=== PATIENT | female | born 1930 | race Caucasian/White ===

== ENCOUNTER 2018-05-31 19:50 | Inpatient (IN) | payer OTHER ==
[~2018-05-31] VITALS: Ht 167.6 cm; Wt 60.8 kg
[~2018-05-31 19:50] MED LIST: AMIODARONE HCL200 M1 PO; AMOXICILLIN500 M2 PO; ASPIRIN EC81 M1 PO; CORDARONE 200M200 MG PO; ELIQUIS2.5 M1 PO; FERROUS GLUCON300 MG PO; HYDRODIURIL 112.5 MG PO; LISINOPRIL20 M1 PO; MORPHINE10 MG/ML IV; MULTAQ 400MG400 MG PO; NORVASC5 M1 PO; PERCOCET MONOGRA5 MG PO; PRESERVISION A1 EACH PO; PRINIVIL 5MG5 MG PO; PRINIVIL10 MG PO; PRINIVIL20 M1 PO; SENNA S TABLET1 EACH PO; SIMVASTATIN5 M2 PO; TRAMADOL HCL50 M1 PO; TYLENOL325 M1 PO
--- NOTE | 2018-05-31 19:55 | ED MVC/FALL/TRAUMA COMPLAINT ---
History of Present Illness General Chief Complaint: Hip Injury Stated Complaint: BIBA MECHANICAL FALL, R HIP PAIN Source: patient Exam Limitations: no limitations Vital Signs & Intake/Output Vital Signs & Intake/Output Vital Signs Date Time Temp Pulse Resp B/P B/P Pulse O2 O2 Flow FiO2 Mean Ox Delivery Rate 06/01 0048 97.8 56 20 118/58 96 Room Air 05/310 97.6 55 18 127/55 99 Room Air 05/316 Room Air 05/31 1952 98.4 59 18 226/104 97 Room Air ED Intake and Output 06/01 0000 05/31 1200 Intake Total Output Total 200 Balance -200 Output, Urine 200 Patient 120 lb Weight Allergies Coded Allergies: NO KNOWN ALLERGIES (01/31/14) Reconcile Medications Amiodarone (Cordarone) 200 MG TABLET 1 TAB PO DAILY HEART (Reported) Amlodipine Besylate (Norvasc) 5 MG TABLET 1 TAB PO DAILY BP (Reported) Aspirin (Ecotrin*) 81 MG TABLET.DR 1 TAB PO DAILY HEART/BLOOD (Reported) Lisinopril 20 MG TABLET 1 TAB PO DAILY blood pressure (Reported) Sennosides/Docusate Sodium (Senna S Tablet) 8.6 MG-50 MG TABLET 2 TAB PO QHS GI (Reported) Simvastatin (Simvastatin*) 5 MG TABLET 1 TAB PO DAILY CHOLESTEROL (Reported) Vit A/Vit C/Vit E/Zinc/Copper (Preservision Areds Tablet) 7,160-113 TABLET 1 TAB PO BID EYE PROBLEMS (Reported) Triage Nurses Notes Reviewed? yes Onset: Gradual Duration: hour(s): Timing: recent history Severity: moderate Injuries/Fall Location: lower extremity Method of Injury: fall Loss of Consciousness: no loss of consciousness Modifying Factors: Worsens With: palpation. Associated Symptoms: right hip pain HPI: 88yo woman, h/o prior hip fracture, presents after a mechanical fall. She notes that she was cooking in the kitchen, pivoted, and then fell, landing on her right hip. She noted pain and difficulty moving. She notes no head injury, no syncopal prodrome or chest pain. She is otherwise well. Past History Travel History Traveled to [place] past 21 day No Medical History Any Pertinent Medical History? see below for history Neurological: CVA EENT: NONE Cardiovascular: hypertension, hyperlipidemia Respiratory: NONE Gastrointestinal: constipation Hepatic: NONE Renal: NONE Musculoskeletal: NONE Psychiatric: NONE Endocrine: NONE Blood Disorders: NONE Cancer(s): NONE History of MRSA: No History of VRE: No History of CDIFF: No Surgical History Surgical History: none Psychosocial History Who do you live with Son Services at Home Nursing What is your primary language Nepali Family History Family History, If Any: MOTHER Myocardial infarction Hx Contributory? No Review of Systems Review of Systems Constitutional: Reports: no symptoms. Eyes: Reports: no symptoms. Ears, Nose, Throat, Mouth: Reports: no symptoms. Respiratory: Reports: no symptoms. Cardiovascular: Reports: no symptoms. Gastrointestinal/Abdominal: Reports: no symptoms. Genitourinary: Reports: no symptoms. Musculoskeletal: Reports: no symptoms. Skin: Reports: no symptoms. Neurological/Psychological: Reports: no symptoms. All Other Systems: Reviewed and Negative Physical Exam Physical Exam General Appearance: well developed/nourished, mild distress, moderate distress Head: atraumatic, normal appearance Eyes: Bilateral: normal appearance. Ears, Nose, Throat, Mouth: hearing grossly normal, moist mucous membrane Neck: normal inspection, supple, full range of motion, no midline tenderness Respiratory: normal breath sounds, chest non-tender, no respiratory distress, quiet respiration, lungs clear Cardiovascular: regular rate/rhythm Gastrointestinal: normal bowel sounds, soft, non-tender, no organomegaly Back: normal inspection, normal range of motion Extremities: right leg internally rotated, tender to palpation around right hip girdle. 2+ distal pulse, light touch intact. Neurologic/Psych: no motor/sensory deficits, awake, alert, oriented x 3 Skin: intact, normal color, warm/dry Core Measures ACS in differential dx? No CVA/TIA Diagnosis No Sepsis Present: No Sepsis Focused Exam Completed? No Progress Differential Diagnosis: C/T/L spine injury, ext injury, ICH Plan of Care: Orders Procedure Date/time Status Nothing by Mouth 06/01 B Active CBC WITHOUT DIFFERENTIAL 06/01 06 Active BASIC ELECTROLYTES PLUS BUN&CR 06/01 0600 Active Weight 06/01 138 Active Vital Signs 06/01 138 Active Teach/Educate 06/01 138 Active Pain Treatment and Response 06/01 138 Active Nutritional Intake, Monitor 06/01 138 Active Isolation 06/01 138 Active Intake & Output 06/01 138 Active Patient Care Conference 06/01 138 Active Activity/Ambulation 06/01 138 Active EKG 06/01 0126 Active Pathway - chart 06/01 0023 Active House Staff 06/01 0023 Active Code Status 06/01 0023 Active VTE Mechanical Prophylaxis 06/01 UNK Active Patient Data 05/31 234 Active Saline Lock 05/31 2322 Active Misc Message 05/31 2322 Active ED Holding Orders 05/31 2322 Active Admit to inpatient 05/31 2322 Active Vital Signs 05/31 2322 Active Code Status 05/31 2322 Complete Intake & Output 05/31 2046 Active Lilly, Insertion/Removal/Asses 05/31 1958 Active CULTURE,URINE 05/31 1958 Active URINALYSIS 05/31 1958 Complete TROPONIN LEVEL 05/31 1958 Complete PARTIAL THROMBOPLASTIN TIME 05/31 1958 Complete PROTHROMBIN TIME 05/31 1958 Complete LIPASE 05/31 1958 Complete HEPATIC FUNCTION PANEL 05/31 1958 Complete CBC WITHOUT DIFFERENTIAL 05/31 1958 Complete BASIC METABOLIC PANEL 05/31 1958 Complete AMYLASE 05/31 1958 Complete EKG 05/31 1958 Active TYPE & SCREEN (NOT X-MATCH) 05/31 1958 Complete Current Medications Sig/Tiffanie Start time Last Medication Dose Stop Time Status Admin Senna/Docusate Sodium 2 TAB QPM 06/01 2100 AC (Senokot S) Atorvastatin Calcium 5 MG 1700 06/01 1700 AC (Lipitor) Amiodarone HCl 200 MG DAILY 06/01 09 AC (Cordarone) Amlodipine Besylate 5 MG DAILY 06/01 09 AC (Norvasc) Lisinopril 20 MG DAILY 06/01 09 AC (Prinivil) Heparin Sodium 5,000 UNIT Q8 06/01 0100 AC 06/01 (Porcine) 06/01 0601 0206 Acetaminophen 650 MG Q6P PRN 06/01 0030 AC 06/01 (Tylenol) 0157 Dextrose/Sodium 1,000 ML Q13H 06/01 0030 AC 06/01 Chloride 0152 (D5W-1/2 Normal Saline 1000ML) Morphine Sulfate 2 MG Q4P PRN 06/01 0030 AC (MORPHINE SULFATE) Oxycodone/ 1 TAB Q4P PRN 06/01 0030 AC Acetaminophen (Percocet) Laboratory Tests 05/31/182037: Urine Color YEL, Urine Clarity HAZY H, Urine pH 7.0, Ur Specific [place] 1.020, Urine Protein TRACE H, Urine Ketones NEG, Urine Nitrite POS H, Urine Bilirubin NEG, Urine Urobilinogen 0.2, Ur Leukocyte Esterase MOD H, Ur Microscopic SEDIMENT EXAMINED, Urine RBC RARE, Urine WBC 15-25 H, Ur Epithelial Cells RARE, Urine Bacteria MANY H, Urine Hemoglobin TRACE-INTACT, Urine Glucose NEG 05/31/182014: Anion Gap 7, Estimated GFR 39 L, BUN/Creatinine Ratio 20.8, Glucose 125 H, Calcium 8.7, Total Bilirubin 0.3, Direct Bilirubin 0.2, AST 23, ALT 24, Alkaline Phosphatase 74, Troponin I < 0.01, Total Protein 6.7, Albumin 4.0, Amylase 50, Lipase 103, PT 11.9, INR 1.09, APTT 28, CBC w Diff NO MAN DIFF REQ, RBC 4.05 L, MCV 92.8, MCH 30.7, MCHC 33.1, RDW 15.3 H, MPV 8.6, Gran % 73.2, Lymphocytes % 19.5 L, Monocytes % 5.8, Eosinophils % 1.3, Basophils % 0.2, Absolute Granulocytes 7.2 H, Absolute Lymphocytes 1.9, Absolute Monocytes 0.6, Absolute Eosinophils 0.1, Absolute Basophils 0 Microbiology 05/31 2038 URINE ROUT: Urine Culture - RECD Diagnostic Imaging: Viewed by Me: Radiology Read, CT Scan. Discussed w/RAD: Radiology Read, CT Scan. Radiology Impression: PATIENT: JUAN ACOSTA PRESENT AGE: 88 PATIENT ACCOUNT NO: [id number] : 32 LOCATION: [facility] ORDERING PHYSICIAN: Amando Howard MD SERVICE DATE: 05/31/18 EXAM TYPE: RAD - XRY-AP PELVIS; XRY-FEMUR, 2 VIEWS RIGHT; XRY-HIP 2-3 VIEWS, RIGHT; XRY-PORTABLE CHEST XRAY EXAMINATION: Right hip, right femur, AP pelvis and chest x-ray CLINICAL INFORMATION: Right hip pain. COMPARISON: None TECHNIQUE : AP pelvis one view. Right hip 2 views, right femur 2 views and chest one view. . FINDINGS: AP PELVIS: There is right hip femoral prosthesis in alignment with the acetabulum. The left hip joint appears unremarkable. There is no bony abnormality. The soft tissues are normal. RIGHT HIP: AP and frog-leg views right hip reveal right femoral prosthesis to be in good alignment. No dislocation. There is no loosening of the prosthesis. The soft tissues are normal. Right femur: There is distal right femoral oblique fracture with displacement. CHEST: The lungs are expanded and clear of acute process. The heart size and pulmonary vascularity is normal. No gross bony abnormality seen. IMPRESSION: Oblique fracture distal femur with mild displacement. Right hip prosthesis is in alignment without any loosening. There is no fracture involving the left hip or pelvic bones. Unremarkable chest exam. DICTATED BY: Placido Pena MD DATE/TIME DICTATED:05/31/182307 TELETYPESETTER OPERATOR:SENTHIL DATE/TIME TRANSCRIBED:2307 CONFIDENTIAL, DO NOT COPY WITHOUT APPROPRIATE AUTHORIZATION. < Electronically signed in Other Vendor System> SIGNED BY: Placido Pena MD [id number], PATIENT: JUAN ACOSTA PRESENT AGE : 88 PATIENT ACCOUNT NO: [id number] : 32 LOCATION: [facility] ORDERING PHYSICIAN: Amando Howard MD SERVICE DATE: 05/31/18 EXAM TYPE: CAT - CT CERV SPINE WO IV CONTRAST; CT HEAD WO IV CONTRAST EXAMINATION: CT HEAD WITHOUT CONTRAST CT CERVICAL SPINE WITHOUT CONTRAST CLINICAL INFORMATION: Fall, trauma. COMPARISON: CT head 08/20/2017 TECHNIQUE: Multidetector CT imaging of the head and cervical spine was performed without the use of intravenous contrast. FINDINGS: CT Brain: There is no evidence of acute intracranial hemorrhage, midline shift, mass effect, or extra-axial fluid collection. There is generalized cerebral volume loss with central predominance, as before. There is a focal area of encephalomalacia involving the left basal ganglia, likely reflecting sequela of prior hemorrhage. Stable background of chronic microvascular ischemic change. The calvarium is intact. Visualized paranasal sinuses and mastoid air cells are clear. CT Cervical spine: There is reversal of the normal cervical lordosis. Cervical vertebral bodies are unchanged in height and alignment. There is unchanged grade 1 anterolisthesis of C3 on C4 as well as C7 on T1. No evidence of acute fracture or traumatic subluxation. Advanced multilevel degenerative changes of the cervical spine are again seen, with severe loss of intervertebral disc height and disc osteophyte formation at C4-C5 , C5-C6, and C6-C7. There is fusion of the left C2-C3 facets. Findings are overall not significantly changed from prior exam. Regional soft tissues are within normal limits. No focal lung consolidation in the lung apices. At this chronic calcifications are seen along the carotid bifurcations and proximal major cervical arterial vasculature. IMPRESSION: CT Brain: Stable exam. No acute intracranial hemorrhage or mass effect. CT Cervical spine: No evidence of cervical spine fracture. Advanced degenerative changes of the cervical spine, as before. DICTATED BY: Kush Campbell MD DATE/TIME DICTATED:05/31/182300 TELETYPESETTER OPERATOR:SENTHIL DATE/TIME TRANSCRIBED:05/31/182300 CONFIDENTIAL, DO NOT COPY WITHOUT APPROPRIATE AUTHORIZATION. <Electronically signed in Other Vendor System> SIGNED BY: Kush Campbell MD 05/31/182313, PATIENT: JUAN ACOSTA PRESENT AGE: 88 PATIENT ACCOUNT NO: [id number] : 32 LOCATION: [facility] ORDERING PHYSICIAN: Bakari Grady MD SERVICE DATE: 05/31/18 EXAM TYPE: RAD - XRY-FEMUR, 2 VIEWS RIGHT EXAMINATION: XR FEMUR, RIGHT CLINICAL INFORMATION: Femur fracture. COMPARISON: 05/31/2018 TECHNIQUE: AP and lateral views of the right femur were obtained. FINDINGS/IMPRESSION: Again seen is the oblique oriented fracture across the mid right femoral shaft. When compared to the prior exam, there has been improvement in overall osseous alignment, though with residual, approximately half shaft medial displacement of the distal fracture fragment. No new acute osseous abnormalities identified. Right hip prosthesis again noted with adjacent heterotopic calcification. DICTATED BY: Kush Campbell MD DATE/TIME DICTATED:37 TELETYPESETTER OPERATOR:SENTHIL DATE/TIME TRANSCRIBED:06/01/1837 CONFIDENTIAL, DO NOT COPY WITHOUT APPROPRIATE AUTHORIZATION. <Electronically signed in Other Vendor System> SIGNED BY: Kush Campbell MD 06/01/18 0044 Initial ED EKG: sinus, no acute changes Departure Departure Disposition: STILL A PATIENT Condition: Stable Clinical Impression Primary Impression: Right femoral fracture Referrals: Mounika Foster MD (PCP/Family) Departure Forms: Customer Survey General Discharge Information Comments 05/31/18, 23:21... discussed with dr. shay... pt to be admitted to medicine for pre-op clearance. Admission Note Spoke With: Chelsea TANNER,Avinash Documentation of Exam: Documentation of any treatments & extenuating circumstances including Concerns Regarding Discharge (functional status, medication knowledge or non-compliance, living conditions, etc.) that warrant an admission rather than observation: pt with sprial type right femur fracture... pt merits surgical clearance on medicine service prior to surgical repair. Procedures Joint Reduction Joint Reduction Site: right femur Reduction Attempts: 1 Pre-Procedure NV Exam: Yes Post-Procedure NV Exam: Yes Post Joint Reduction Film: femur alignment improved. pt placed in posterior and sugar tong splint.
[2018-05-31 20:41] LABS: ABSOLUTE BASOPHIL COUNT 0 /CUMM (0.0-0.2); ABSOLUTE EOSINOPHIL COUNT 0.1 /CUMM (0.0-0.7); ABSOLUTE LYMPH COUNT 1.9 /CUMM (1.2-3.4); ABSOLUTE MONOCYTE COUNT 0.6 /CUMM (0.10-0.60); BASOPHIL % 0.2 % (0.0-2.0); EOSINOPHIL % 1.3 % (0-5); GRANULOCYTE % 73.2 % (42.2-75.2); HEMATOCRIT 37.5 % (37-47); MEAN CORPUSCULAR HGB 30.7 PG (27.0-31.0); MEAN CORPUSCULAR VOLUME 92.8 FL (81.0-99.0); MEAN PLATELET VOLUME 8.6 FL (7.4-10.4); PLATELET COUNT 269 /CUMM (130-400); RBC DISTRIBUTION WIDTH 15.3 % (11.5-14.5); RED BLOOD CELL CT 4.05 /CUMM (4.20-5.40)
[2018-05-31 20:48] LABS: ABSOLUTE GRANULOCYTE CT 7.2 /CUMM (1.4-6.5); MEAN CORPUSCULAR HGB CONC 33.1 G/DL (33.0-37.0); WHITE BLOOD CELL COUNT 9.8 /CUMM (4.8-10.8)
[2018-05-31 20:53] LABS: PT 11.9 SEC (9.4-12.5); PTT 28 SEC (25-37)
--- NOTE | 2018-05-31 23:14 | CT SCAN REPORT ---
EXAMINATION: CT HEAD WITHOUT CONTRAST CT CERVICAL SPINE WITHOUT CONTRAST CLINICAL INFORMATION: Fall, trauma. COMPARISON: CT head 08/20/2017 TECHNIQUE: Multidetector CT imaging of the head and cervical spine was performed without the use of intravenous contrast. FINDINGS: CT Brain: There is no evidence of acute intracranial hemorrhage, midline shift, mass effect, or extra-axial fluid collection. There is generalized cerebral volume loss with central predominance, as before. There is a focal area of encephalomalacia involving the left basal ganglia, likely reflecting sequela of prior hemorrhage. Stable background of chronic microvascular ischemic change. The calvarium is intact. Visualized paranasal sinuses and mastoid air cells are clear. CT Cervical spine: There is reversal of the normal cervical lordosis. Cervical vertebral bodies are unchanged in height and alignment. There is unchanged grade 1 anterolisthesis of C3 on C4 as well as C7 on T1. No evidence of acute fracture or traumatic subluxation. Advanced multilevel degenerative changes of the cervical spine are again seen, with severe loss of intervertebral disc height and disc osteophyte formation at C4-C5, C5-C6, and C6-C7. There is fusion of the left C2-C3 facets. Findings are overall not significantly changed from prior exam. Regional soft tissues are within normal limits. No focal lung consolidation in the lung apices. At this chronic calcifications are seen along the carotid bifurcations and proximal major cervical arterial vasculature. IMPRESSION: CT Brain: Stable exam. No acute intracranial hemorrhage or mass effect. CT Cervical spine: No evidence of cervical spine fracture. Advanced degenerative changes of the cervical spine, as before.
--- NOTE | 2018-05-31 23:16 | RADIOLOGY REPORT ---
EXAMINATION: Right hip, right femur, AP pelvis and chest x-ray CLINICAL INFORMATION: Right hip pain. COMPARISON: None TECHNIQUE: AP pelvis one view. Right hip 2 views, right femur 2 views and chest one view. . FINDINGS: AP PELVIS: There is right hip femoral prosthesis in alignment with the acetabulum. The left hip joint appears unremarkable. There is no bony abnormality. The soft tissues are normal. RIGHT HIP: AP and frog-leg views right hip reveal right femoral prosthesis to be in good alignment. No dislocation. There is no loosening of the prosthesis. The soft tissues are normal. Right femur: There is distal right femoral oblique fracture with displacement. CHEST: The lungs are expanded and clear of acute process. The heart size and pulmonary vascularity is normal. No gross bony abnormality seen. IMPRESSION: Oblique fracture distal femur with mild displacement. Right hip prosthesis is in alignment without any loosening. There is no fracture involving the left hip or pelvic bones. Unremarkable chest exam.
--- NOTE | 2018-06-01 00:19 | History & Physical ---
Ysabel TANNER,[facility] 06/01/18 0018: General Information and HPI MD Statement: I have seen and personally examined JUAN ACOSTA and documented this H&P. The patient is a 88 year old F who presented with a patient stated chief complaint of [right leg pain and fall]. Source of Information: patient Exam Limitations: no limitations History of Present Illness: 88 yo F with PMH of CVA (with no residual deficits), hypertension, hyperlipidemia, paroxysmal atrial fibrillation (on amiodarone and not on anticoagulation) was brought to the ED after sustaining a fall. The patient states that earlier today she was in her kitchen and while ambulating, slipped on her walker and fell down. She did hit her head but denies LOC. She denies any lightheadedness/dizziness, chest pain or palpitations prior the fall and that she just simply lost her balance. After falling down, she pressed on her life vest and soon the EMS arrived and brought her to the hospital. She currently describes her pain as 5/10 and denies any numbness or tingling sensation in her right leg. The patient normally lives by herself but does have an VNA though the aid was not present at the time of the incident. She denies any fevers, chills, headaches, exertional SOB, chest pain, abdominal pain, dysuria or any other associated symptoms. Of note, the patient was admitted round about the same time last year for a right hip hemiarthroplasty. Imaging in the ED showed oblique fracture of right femur with mild displacement. Allergies/Medications Allergies: Coded Allergies: NO KNOWN ALLERGIES (01/31/14) Home Med list Acetaminophen (Tylenol) 325 MG TABLET 2 TAB PO Q6P PRN PAIN Amiodarone (Cordarone) 200 MG TABLET 1 TAB PO DAILY HEART (Reported) Amlodipine Besylate (Norvasc) 5 MG TABLET 1 TAB PO DAILY BP (Reported) Aspirin (Ecotrin*) 81 MG TABLET.DR 1 TAB PO DAILY HEART/BLOOD (Reported) Enoxaparin Sodium (Lovenox) 40 MG/0.4 ML SYRINGE 40 MG SC DAILY DVT prophylaxsis Lidocaine 5 % ADH..PATCH 1 PAT TOP DAILY FRACTURE SITE Lisinopril 20 MG TABLET 1 TAB PO DAILY blood pressure (Reported) Sennosides/Docusate Sodium (Senna S Tablet) 8.6 MG-50 MG TABLET 2 TAB PO QHS GI (Reported) Simvastatin (Simvastatin*) 5 MG TABLET 1 TAB PO DAILY CHOLESTEROL (Reported) Vit A/Vit C/Vit E/Zinc/Copper (Preservision Areds Tablet) 7,160-113 TABLET 1 TAB PO BID EYE PROBLEMS (Reported) Past History Travel History Traveled to [place] past 21 day No Medical History Neurological: CVA EENT: NONE Cardiovascular: hypertension, hyperlipidemia Respiratory: NONE Gastrointestinal: constipation Hepatic: NONE Renal: NONE Musculoskeletal: NONE Psychiatric: NONE Endocrine: NONE Blood Disorders: NONE Cancer(s): NONE History of MRSA: No History of VRE: No History of CDIFF: No Surgical History Surgical History: none Past Family/Social History Family History Relations & Conditions if any MOTHER Myocardial infarction Psychosocial History Who Do You Live With? self Services at Home: Nursing Functional Ability ADLs Independent: dressing, eating, toileting, bathing. Ambulation: cane IADLs Independent: shopping, housework, finances, food prep, telephone, transportation , medication admin. Review of Systems Review of Systems Constitutional: Reports: see HPI. Exam & Diagnostic Data Last 24 Hrs of Vital Signs/I&O Vital Signs Date Time Temp Pulse Resp B/P B/P Pulse O2 O2 Flow FiO2 Mean Ox Delivery Rate 06/01 0048 97.8 56 20 118/58 96 Room Air 05/31 2150 97.6 55 18 127/55 99 Room Air 05/31 2046 Room Air 05/31 1952 98.4 59 18 226/104 97 Room Air Intake & Output 06/01 0800 06/01 0000 05/31 1600 Intake Total Output Total 200 Balance -200 Output, Urine 200 Patient 134 lb 120 lb Weight Weight Bed scale Measurement Method Physical Exam General Appearance Alert, Oriented X3, Cooperative, Mild Distress Skin No Rashes, No Breakdown Skin Temp/Moisture Exam: Warm/Dry Sepsis Skin Exam (color): Normal for Ethnicity HEENT Atraumatic Cardiovascular Normal S1, Normal S2, No Murmurs Lungs Normal Air Movement, anterior chest CTA Abdomen Soft, No Tenderness Neurological Normal Speech Extremities No Edema, RLE in splint. Assessment/Plan Assessment: 88 yo F with PMH of CVA (with no residual deficits), hypertension, hyperlipidemia, paroxysmal atrial fibrillation (on amiodarone and not on anticoagulation) was brought to the ED after sustaining a fall. Assessment: 1. Right Femoral Fracture 2. History of hypertension and hyperlipidemia 3. History of paroxysmal atrial fibrillation Plan: * Admit patient to general medicine floor. * Continue conservative management with a splint for now. * Pain control with tylenol and IV morphine as needed. * Ortho consult. Patient is scheduled for the OR tomorrow. * Cardiology clearance has been requested by ortho. The patient was found to have a modest troponin elevation on her labs last year. An echo performed at the time showed no WMA. * Hydrate with D5-1/2 NS @ 75ml/hr * Please confirm home medication list in am. The patient states she uses [facility] in [place]. Also her aid can provide a list. * Diet: NPO * DVT Prophylaxis: SC Heparin * Code: Full Code As Ranked By This Provider Problem List: 1. Right femoral fracture Core Measures/Misc (05/25) Acute Coronary Syndrome ACS Diagnosis: No Congestive Heart Failure Congestive Heart Failure Diagnosis No Cerebrovascular Accident CVA/TIA Diagnosis: No VTE (View Protocol) VTE Risk Factors Age>40 No Mechanical VTE Prophylaxis d/t N/A MechProphylax Ordered No VTE Pharm Prophylaxis d/t NA PharmProphylax ordered Sepsis (View protocol) Sepsis Present: No If YES complete Sepsis Event Note If YES complete Sepsis Event Note Avinash Tran 06/01/18 0131: Core Measures/Misc (05/25) Sepsis (View protocol) If YES complete Sepsis Event Note If YES complete Sepsis Event Note Attending MD Review Statement Attending Statement Attending MD Statement: examined this patient, discuss w/resident/PA/GOVERNMENT CLERK, agreed w/resident/PA/GOVERNMENT CLERK, reviewed images, amended to note Attending Assessment/Plan: Addendum by . Patient was seen and examined at bedside today (06/01/18) at 1;10Am. Reviewed the history physical done by the resident. Reviewed the past medical family, family, social history. ROS: 10 point system reviewed and negative except as described above. Additional details: Patient is 88 years old female with history of previous CVA without any residual weakness, paroxysmal atrial fibrillation on amiodarone, history of hypertension, hyperlipidemia who is here for evaluation of right femur fracture. Patient was in the kitchen and she slipped and fell and sustained a fracture in the right femur. Except pain no other complaints. Patient had a history of right femoral fracture and surgical fixation in the past. Exam: Alert, awake, oriented 3, has poor dentition he has dentures. Cardiac examination-regular sounds no murmurs. Lungs-clear Abdomen soft Right lower extremity status post splinting. Trace edema of the leg noted. Right femoral x-ray, chest x-ray, labs reviewed. Assessment and plan: #Right femur shaft fracture which is the periprosthetic area, due to fall- status post splinting in the ER. Seen by orthopedic, double take her to or tomorrow. We will give her subcu heparin for now until surgery is done to prevent DVT. As needed morphine for pain control. #history of CVA without residual weakness-continue with aspirin, statin. #Hypertension-controlled on medication #Permanent atrial fibrillation-on amiodarone, currently sinus rhythm. Not on any blood thinner at home. Preop evaluation-currently patient does not have any active cardiopulmonary disease or any neuro, renal or liver conditions that will hinder from the procedure. Currently regular rhythm, getting an EKG. Old records reviewed. Patient does not need any further workup. She is at acceptable risk to undergo proposed surgery for femoral fracture. Reviewed with the resident. Agree with the rest of the plan as per resident's note. Dr.Ravinder Lucille MD. Hospitalist. Pager: [phone], cell: [phone]. Pager: [phone], cell: [phone].
--- NOTE | 2018-06-01 00:25 | Cons- Orthopedic ---
Opal Sam 06/01/18 0018: General Information and HPI Consulting Request Date of Consult: 06/01/18 Requested By: ER Dr. Nunez Reason for Consult: fall with right hip injury Source of Information: patient Exam Limitations: no limitations History of Present Illness: This is an 88-year-old female with a past medical history significant for hypertension, hyperlipidemia, prior CVA , paroxysmal atrial fib presented to the emergency room after a traumatic fall in her kitchen. Patient states she was cooking when she twisted, pivoting on her right leg. She felt pain in her leg, then it gave out on her and she fell to the ground. Patient states she did not hit her head or lose consciousness there was no dizziness chest pain prior to the fall. She is in good health without any recent fevers flus or infections or acute changes in her health. Allergies/Medications Allergies: Coded Allergies: NO KNOWN ALLERGIES (01/31/14) Home Med List: Acetaminophen (Tylenol) 325 MG TABLET 2 TAB PO Q6P PRN PAIN Amiodarone (Cordarone) 200 MG TABLET 1 TAB PO DAILY HEART (Reported) Amlodipine Besylate (Norvasc) 5 MG TABLET 1 TAB PO DAILY BP (Reported) Aspirin (Ecotrin*) 81 MG TABLET.DR 1 TAB PO DAILY HEART/BLOOD (Reported) Calcium Carbonate/Vitamin D3 (Calcium 500 + D Tablet) 500 MG-400 TABLET 1 TAB PO BID osteoporosis Cephalexin 250 MG CAPSULE 1 MG PO Q6 uti Cholecalciferol (Vitamin D3) 1,000 UNIT TABLET 1 TAB PO DAILY osteoporosis Enoxaparin Sodium (Lovenox) 40 MG/0.4 ML SYRINGE 40 MG SC DAILY DVT prophylaxsis contiune till 07/14 (six wks after the surgey) Lidocaine 5 % ADH..PATCH 1 PAT TOP DAILY FRACTURE SITE Lisinopril 20 MG TABLET 1 TAB PO DAILY blood pressure (Reported) Sennosides/Docusate Sodium (Senna S Tablet) 8.6 MG-50 MG TABLET 2 TAB PO QHS GI (Reported) Simvastatin (Simvastatin*) 5 MG TABLET 1 TAB PO DAILY CHOLESTEROL (Reported) Vit A/Vit C/Vit E/Zinc/Copper (Preservision Areds Tablet) 7,160-113 TABLET 1 TAB PO BID EYE PROBLEMS (Reported) Past History Medical History Neurological: CVA EENT: NONE Cardiovascular: hypertension, hyperlipidemia Respiratory: NONE Gastrointestinal: constipation Hepatic: NONE Renal: NONE Musculoskeletal: NONE Psychiatric: NONE Endocrine: NONE Blood Disorders: NONE Cancer(s): NONE Surgical History Pertinent Surgical History: 1 Family History Relations & Conditions If Any: MOTHER Myocardial infarction Psychosocial History Who Do You Live With? self Services at Home: Nursing Functional Ability ADLs Independent: dressing, eating, toileting, bathing. Ambulation: cane IADLs Independent: shopping, housework, finances, food prep, telephone, transportation , medication admin. Review of Systems Review of Systems: Review of systems: See HPI, all other systems negative. Constitutional: No chills fever or weight loss HEENT: No visual changes no sore throat no congestion Cardiovascular: No chest pain ,palpitation , orthopnea or ankle swelling Skin: No jaundice no rashes Respiratory: No dyspnea cough sputum or hemoptysis GI: No nausea no vomiting : No dysuria no hematuria Musclulo skeletal: No back pain no neck pain, Neurologic: No numbness no confusion Psych: No stress anxiety or depression,. Heme/endocrine: No bruising no bleeding no polyuria or polydipsia Immunology: No splenectomy or history of AIDS Exam & Diagnostic Data Vital Signs and I&O Vital Signs Date Time Temp Pulse Resp B/P B/P Pulse O2 O2 Flow FiO2 Mean Ox Delivery Rate 05/31 2150 97.6 55 18 127/55 99 Room Air 05/31 2046 Room Air 05/31 1952 98.4 59 18 226/104 97 Room Air Intake & Output 06/01 0806/01 0000 05/31 1600 05/31 0805/31 0000 05/30 1600 Intake Total Output Total 200 Balance -200 Output, Urine 200 Patient 120 lb Weight Physical Exam: 88-year-old female alert and oriented 3 HEENT head is atraumatic normocephalic nontender no evidence of trauma, hematoma or abrasions Eyes are PERRLA extraocular muscles intact Nose is patent without drainage TMs are clear without hemotympanum Mouth positive gag no erythema Neck supple nontender with active range of motion Chest is clear to auscultation symmetric without rales rhonchi or wheeze there is no chest wall tenderness Heart regular rate and rhythm without murmurs rubs gallops Abdomen is soft without distention nontender to palpation Bilateral lower extremities are warm with good perfusion distal pulses are 1+ bilaterally sensorimotor is intact Right hip range of motion not tested there is deformity of the mid thigh with moderate edema. ER staff placed a posterior splint to control motion and rotation Last 24 Hours of Labs: Laboratory Tests 05/31 Chemistry Sodium (137 - 145 mmol/L) 138 Potassium (3.5 - 5.1 mmol/L) 4.1 Chloride (98 - 107 mmol/L) 100 Carbon Dioxide (22 - 30 mmol/L) 31 H Anion Gap (5 - 16) 7 BUN (7 - 17 mg/dL) 27 H Creatinine (0.5 - 1.0 mg/dL) 1.3 H Estimated GFR (>60 ml/min) 39 L BUN/Creatinine Ratio (7 - 25 %) 20.8 Glucose (65 - 99 mg/dL) 125 H Calcium (8.4 - 10.2 mg/dL) 8.7 Total Bilirubin (0.2 - 1.3 mg/dL) 0.3 Direct Bilirubin (< 0.4 mg/dL) 0.2 AST (14 - 36 U/L) 23 ALT (9 - 52 U/L) 24 Alkaline Phosphatase (<127 U/L) 74 Troponin I (< 0.11 ng/ml) < 0.01 Total Protein (6.3 - 8.2 g/dL) 6.7 Albumin (3.5 - 5.0 g/dL) 4.0 Amylase (30 - 110 U/L) 50 Lipase (23 - 300 U/L) 103 Coagulation PT (9.4 - 12.5 SEC) 11.9 INR (0.90 - 1.19) 1.09 APTT (25 - 37 SEC) 28 Hematology CBC w Diff NO MAN DIFF REQ WBC (4.8 - 10.8 /CUMM) 9.8 RBC (4.20 - 5.40 /CUMM) 4.05 L Hgb (12.0 - 16.0 G/DL) 12.4 Hct (37 - 47 %) 37.5 MCV (81.0 - 99.0 FL) 92.8 MCH (27.0 - 31.0 PG) 30.7 MCHC (33.0 - 37.0 G/DL) 33.1 RDW (11.5 - 14.5 %) 15.3 H Plt Count (130 - 400 /CUMM) 269 MPV (7.4 - 10.4 FL) 8.6 Gran % (42.2 - 75.2 %) 73.2 Lymphocytes % (20.5 - 51.1 %) 19.5 L Monocytes % (1.7 - 9.3 %) 5.8 Eosinophils % (0 - 5 %) 1.3 Basophils % (0.0 - 2.0 %) 0.2 Absolute Granulocytes (1.4 - 6.5 /CUMM) 7.2 H Absolute Lymphocytes (1.2 - 3.4 /CUMM) 1.9 Absolute Monocytes (0.10 - 0.60 /CUMM) 0.6 Absolute Eosinophils (0.0 - 0.7 /CUMM) 0.1 Absolute Basophils (0.0 - 0.2 /CUMM) 0 Urines Urine Color (YEL,AMB,STR) YEL Urine Clarity (CLEAR) HAZY H Urine pH (5.0 - 8.0) 7.0 Ur Specific [place] (1.001 - 1.035) 1.020 Urine Protein (NEG,<30 MG/DL) TRACE H Urine Ketones (NEG) NEG Urine Nitrite (NEG) POS H Urine Bilirubin (NEG) NEG Urine Urobilinogen (0.1 - 1.0 EU/dl) 0.2 Ur Leukocyte Esterase (NEG) MOD H Ur Microscopic SEDIMENT EXAMINED Urine RBC (0 - 5 /HPF) RARE Urine WBC (0 - 2 /HPF) 15-25 H Ur Epithelial Cells (NONE,FEW) RARE Urine Bacteria (NEG/NONE) MANY H Urine Hemoglobin (NEG) TRACE-INTACT Urine Glucose (N MG/DL) NEG Imaging Results: Chest x-ray normal chest Pelvic films/right hip x-ray reveals a displaced periprosthetic right hip fracture, spiral. There is a cemented bipolar hip Head CT normal Other Results: EKG normal sinus rhythm with ST-T wave abnormalities Assessment/Plan Assessment/Plan 88-year-old female with a past medical history significant for CVA without residual sequela I, paroxysmal atrial fib, hypertension, hyperlipidemia was brought to the ER via EMS after a traumatic fall in her kitchen. She sustained a right mayank-prosthetic femur fracture. Plan she will be admitted to the medical service. She will need cardiac clearance. Her labs are stable however she has an asymptomatic urinary tract infection. Lilly catheter has been placed for her comfort. She will need Alps for DVT prophylaxis and will need to be n.p.o. for surgery tomorrow evening. Consult Acknowledgment - Thank you for your consult request. Nahomy Soriano MD 06/01/18 0822: Assessment/Plan Consult Acknowledgment - Thank you for your consult request. Attending MD Review Statement Attending Statement Attending MD Statement: examined this patient, discuss w/resident/PA/PYROGLAZER, agreed w/resident/PA/PYROGLAZER, reviewed images Attending Assessment/Plan: Patient seen and examined. Resting in bed, splint to right lower extremity. Patient currently rates her pain at 5. No other complaints of pain or dysfunction. Says she tripped over the walker yesterday, resulting in a fall. She lives alone but has an aide during the day; ambulates at baseline with a walker following right cemented dago [place] [address] Pate. Exam: Patient alert, oriented, in no acute distress Splint to right lower extremity Intact right EHL/FHL SILT over SP/DP/T nerve distribution of right foot Foot warm and well-perfused. 88yo F with right [place] C periprosthetic femur fracture; spiral fracture below cemented hemiarthroplasty. Plan for OR today for ORIF right femur. 1. NWB RLE in splint 2. Pain control; please limit narcotics 3. NPO for OR today; continue IV fluids 4. Anticipate drop in H/H given fracture pattern; please monitor labs and vital signs. To OR today for stabilization of fracture.
--- NOTE | 2018-06-01 00:44 | RADIOLOGY REPORT ---
EXAMINATION: XR FEMUR, RIGHT CLINICAL INFORMATION: Femur fracture. COMPARISON: 05/31/2018 TECHNIQUE: AP and lateral views of the right femur were obtained. FINDINGS/IMPRESSION: Again seen is the oblique oriented fracture across the mid right femoral shaft. When compared to the prior exam, there has been improvement in overall osseous alignment, though with residual, approximately half shaft medial displacement of the distal fracture fragment. No new acute osseous abnormalities identified. Right hip prosthesis again noted with adjacent heterotopic calcification.
[2018-06-01 03:00] VITALS: BP 128/56
[2018-06-01 06:10] VITALS: BP 142/68
--- NOTE | 2018-06-01 07:20 | PN- Housestaff ---
See Addendum Subjective Follow-up For: Right hip femoral fracture Subjective: Pt seen and examined at bedside this morning. Dressing and splint applied to right lower extremity. Patient states her pain is 5/10 this morning. She is frustrated about having to do another surgery. Pending cardiology clearance for surgery scheduled at 4PM today. Lilly placed. Patient denies urianry symptoms although UA positive. Will be treated with 1X dose of ceftriaxone prior to surgery. Review of Systems Constitutional: Denies: see HPI. Objective Last 24 Hrs of Vital Signs/I&O Vital Signs Date Time Temp Pulse Resp B/P B/P Pulse O2 O2 Flow FiO2 Mean Ox Delivery Rate 06/01 09 52 110/70 06/01 0958 52 110/70 06/01 0958 52 110/70 06/01 0610 98.5 83 18 142/68 95 Room Air 06/01 0300 98.4 51 20 128/56 95 Room Air 06/01 0048 97.8 56 20 118/58 96 Room Air 05/31 2150 97.6 55 18 127/55 99 Room Air 05/31 2046 Room Air 05/31 1952 98.4 59 18 226/104 97 Room Air Intake & Output 06/01 1600 06/01 0800 06/01 0000 Intake Total 375 Output Total 425 200 Balance -50 -200 Intake, IV 375 Intake, Oral 0 Number 0 Bowel Movements Output, Urine 425 200 Patient 134 lb 120 lb Weight Weight Bed scale Measurement Method Physical Exam General Appearance: Alert, Oriented X3, Cooperative, Mild Distress Skin: right lower extremity dressing/splint applied Skin Temp/Moisture Exam: Warm/Dry HEENT: EOMI, Mucous Membr. moist/pink Neck: Supple Cardiovascular: Normal S1, Normal S2 Lungs: Clear to Auscultation, Normal Air Movement Abdomen: Normal Bowel Sounds, Soft, No Tenderness Neurological: Normal Speech, Normal Tone, sensation intact;decreased strength right lower ext Extremities: No Edema, Normal Pulses Vascular: Normal Pulses Current Medications: Current Medications Sig/Tiffanie Start time Last Medication Dose Route Stop Time Status Admin Acetaminophen 650 MG Q6P PRN 06/01 0030 AC 06/01 PO 0157 Amiodarone HCl 200 MG DAILY 06/01 09 AC 06/01 PO 957 Amlodipine Besylate 5 MG DAILY 06/01 900 AC 06/01 PO 957 Atorvastatin Calcium 5 MG 1700 06/01 1700 AC PO Ceftriaxone Sodium 1,000 MG ONCE ONE 06/01 0900 DC 06/01 IV 06/01 0901 0957 Dextrose/Sodium 1,000 ML Q13H 06/01 0030 AC 06/01 Chloride IV 0152 Heparin Sodium 5,000 UNIT Q8 06/01 0100 DC 06/01 (Porcine) SC 06/01 0601 0536 Influenza Virus 0 .STK-MED ONE 06/01 0955 DC Vaccine IM Influenza Virus 0.5 ML ONCE ONE 06/01 0200 DC 06/01 Vaccine IM 06/01 0201 0959 Lisinopril 20 MG DAILY 06/01 0900 AC 06/01 PO 0958 Morphine Sulfate 2 MG Q4P PRN 06/01 0030 AC 06/01 IV 0536 Morphine Sulfate 4 MG ONCE ONE 05/31 2315 DC 05/31 IV 05/31 2316 2323 Morphine Sulfate 0 .STK-MED ONE 05/31 2314 DC .ROUTE Morphine Sulfate 0 .STK-MED ONE 05/31 2017 DC .ROUTE Morphine Sulfate 2 MG ONCE ONE 05/31 2000 DC 05/31 IV 05/31 Oxycodone/ 1 TAB Q4P PRN 06/01 0030 AC 06/01 Acetaminophen PO 0959 Senna/Docusate Sodium 2 TAB QPM 06/01 2100 AC PO Last 24 Hrs of Lab/Jenaro Results Last 24 Hrs of Labs/Mics: Laboratory Tests 06/01/18 0702: Anion Gap 7, Estimated GFR 53 L, BUN/Creatinine Ratio 26.0 H, CBC w Diff NO MAN DIFF REQ, RBC 3.24 L, MCV 92.6, MCH 31.5 H, MCHC 34.0, RDW 15.0 H, MPV 8.9, Gran % 79.6 H, Lymphocytes % 13.0 L, Monocytes % 7.3, Eosinophils % 0, Basophils % 0.1, Absolute Granulocytes 8.3 H, Absolute Lymphocytes 1.3, Absolute Monocytes 0.8 H, Absolute Eosinophils 0, Absolute Basophils 0 05/31/182037: Urine Color YEL, Urine Clarity HAZY H, Urine pH 7.0, Ur Specific [place] 1.020, Urine Protein TRACE H, Urine Ketones NEG, Urine Nitrite POS H, Urine Bilirubin NEG, Urine Urobilinogen 0.2, Ur Leukocyte Esterase MOD H, Ur Microscopic SEDIMENT EXAMINED, Urine RBC RARE, Urine WBC 15-25 H, Ur Epithelial Cells RARE, Urine Bacteria MANY H, Urine Hemoglobin TRACE-INTACT, Urine Glucose NEG 05/31/182014: Anion Gap 7, Estimated GFR 39 L, BUN/Creatinine Ratio 20.8, Glucose 125 H, Calcium 8.7, Total Bilirubin 0.3, Direct Bilirubin 0.2, AST 23, ALT 24, Alkaline Phosphatase 74, Troponin I < 0.01, Total Protein 6.7, Albumin 4.0, Amylase 50, Lipase 103, PT 11.9, INR 1.09, APTT 28, CBC w Diff NO MAN DIFF REQ, RBC 4.05 L, MCV 92.8, MCH 30.7, MCHC 33.1, RDW 15.3 H, MPV 8.6, Gran % 73.2, Lymphocytes % 19.5 L, Monocytes % 5.8, Eosinophils % 1.3, Basophils % 0.2, Absolute Granulocytes 7.2 H, Absolute Lymphocytes 1.9, Absolute Monocytes 0.6, Absolute Eosinophils 0.1, Absolute Basophils 0 Microbiology 06/01 906 URINE ROUT: Urine Culture - ORD 05/31 2038 URINE ROUT: Urine Culture - RECD Assessment/Plan Assessment: 88 yo F with PMH of CVA (with no residual deficits), hypertension, hyperlipidemia, paroxysmal atrial fibrillation (on amiodarone and not on anticoagulation) was brought to the ED after sustaining a fall. Chest x-ray normal chest Pelvic films/right hip x-ray reveals a displaced periprosthetic right hip fracture, spiral. There is a cemented bipolar hip Head CT normal UA: Positive Nitrite; moderate Esterase; WBC 15-25; Many bacteria PROBLEM LIST: 1. Right Femoral Fracture 2. History of hypertension and hyperlipidemia 3. History of paroxysmal atrial fibrillation PLAN: * NPO for surgery; benefits of surgery outweigh the risks. Medically stable from medical point of view. * Will need cardiac clearance; follow up today with Dr. Feldman * Lilly catheter placed; 1X ceftriaxone for positive UA prior to surgery (no symptoms) * Medical Clearance: Creatinine 1.0 today; H/H stable 10.2/30.1 -EKG: Sinus bradycardia - ST changes not changed from prior EKGs -CXR: Unremarkable chest exam. -UA: + nitrite/LE; trace protein; many bacteria; urine wbc -RCRI: 0.9% (1pt for CVA) risk for major cardiac event -METS: rough calculation of 4.64 Code: Full Code DVT: Heparin SC Diet: NPO Problem List: 1. Right hip pain 2. Fall 3. Right femoral fracture Pain Ratin Pain Location: right thigh Pain Goal: Pain 4 or less Pain Plan: as per pain pathway Tomorrow's Labs & Rationales: cbc bep for post surgical monitoring
[2018-06-01 08:29] LABS: ABSOLUTE BASOPHIL COUNT 0 /CUMM (0.0-0.2); ABSOLUTE EOSINOPHIL COUNT 0 /CUMM (0.0-0.7); ABSOLUTE GRANULOCYTE CT 8.3 /CUMM (1.4-6.5); ABSOLUTE LYMPH COUNT 1.3 /CUMM (1.2-3.4); ABSOLUTE MONOCYTE COUNT 0.8 /CUMM (0.10-0.60); BASOPHIL % 0.1 % (0.0-2.0); EOSINOPHIL % 0 % (0-5); GRANULOCYTE % 79.6 % (42.2-75.2); MEAN CORPUSCULAR HGB 31.5 PG (27.0-31.0); MEAN CORPUSCULAR VOLUME 92.6 FL (81.0-99.0); MEAN PLATELET VOLUME 8.9 FL (7.4-10.4); PLATELET COUNT 241 /CUMM (130-400); RED BLOOD CELL CT 3.24 /CUMM (4.20-5.40); WHITE BLOOD CELL COUNT 10.4 /CUMM (4.8-10.8)
[2018-06-01 08:58] LABS: HEMATOCRIT 30.1 % (37-47)
--- NOTE | 2018-06-01 12:46 | Cons- Cardiology ---
General Information and HPI Consulting Request Date of Consult: 06/01/18 Requested By: Jose De Jesus Trejo MD Reason for Consult: preop History of Present Illness: The patient is an 88-year-old female with history of paroxysmal atrial fibrillation, hypertension, and hyperlipidemia who presents after a fall, and is found to have a right femur fracture. She has had no recent cardiac symptoms. No chest pain. No shortness of breath. No palpitations. Allergies/Medications Allergies: Coded Allergies: NO KNOWN ALLERGIES (01/31/14) Home Med List: Amiodarone (Cordarone) 200 MG TABLET 1 TAB PO DAILY HEART (Reported) Amlodipine Besylate (Norvasc) 5 MG TABLET 1 TAB PO DAILY BP (Reported) Aspirin (Ecotrin*) 81 MG TABLET.DR 1 TAB PO DAILY HEART/BLOOD (Reported) Lisinopril 20 MG TABLET 1 TAB PO DAILY blood pressure (Reported) Sennosides/Docusate Sodium (Senna S Tablet) 8.6 MG-50 MG TABLET 2 TAB PO QHS GI (Reported) Simvastatin (Simvastatin*) 5 MG TABLET 1 TAB PO DAILY CHOLESTEROL (Reported) Vit A/Vit C/Vit E/Zinc/Copper (Preservision Areds Tablet) 7,160-113 TABLET 1 TAB PO BID EYE PROBLEMS (Reported) Past History Travel History Traveled to [place] past 21 day No Medical History Blood Transfusion Hx: No Neurological: CVA EENT: NONE Cardiovascular: hypertension, hyperlipidemia Respiratory: NONE Gastrointestinal: constipation Hepatic: NONE Renal: NONE Musculoskeletal: NONE Psychiatric: NONE Endocrine: NONE Blood Disorders: NONE Cancer(s): NONE Surgical History Surgical History: 1 Family History Relations & Conditions If Any: MOTHER Myocardial infarction Psychosocial History Where Do You Live? Home Who Do You Live With? self Services at Home: Nursing Smoking Status: Former Smoker Functional Ability ADLs Independent: dressing, eating, toileting, bathing. Ambulation: cane IADLs Independent: shopping, housework, finances, food prep, telephone, transportation , medication admin. Exam & Diagnostic Data Vital Signs and I&O Vital Signs Date Time Temp Pulse Resp B/P B/P Pulse O2 O2 Flow FiO2 Mean Ox Delivery Rate 06/01 0958 52 110/70 06/01 0958 52 110/70 06/01 0958 52 110/70 06/01 0800 Room Air 06/01 0610 98.5 83 18 142/68 95 Room Air 06/01 0300 98.4 51 20 128/56 95 Room Air 06/01 0048 97.8 56 20 118/58 96 Room Air 05/31 2150 97.6 55 18 127/55 99 Room Air 05/316 Room Air 05/31 1952 98.4 59 18 226/104 97 Room Air Intake & Output 06/01 1600 06/01 0800 06/01 0000 05/31 1600 05/31 0800 05/31 0000 Intake Total 375 Output Total 425 200 Balance -50 -200 Intake, IV 375 Intake, Oral 0 Number 0 Bowel Movements Output, Urine 425 200 Patient 134 lb 120 lb Weight Weight Bed scale Measurement Method Diagnostic Data EKG Results EKG tracings independently reviewed, and reveals sinus rhythm at [address] scan of the head and neck: CT Brain: Stable exam. No acute intracranial hemorrhage or mass effect. CT Cervical spine: No evidence of cervical spine fracture. Advanced degenerative changes of the cervical spine, as before. Echocardiogram 04/13/17: Normal size left ventricle. Mild concentric left ventricular hypertrophy. Normal left ventricular ejection fraction visually estimated at > 60%. Abnormal relaxation filling pattern of the left ventricle for age (stage 1 diastolic dysfunction). Mild mitral regurgitation. Mild aortic regurgitation. Moderate tricuspid regurgitation. Right ventricular systolic pressure estimated to be elevated at 56 mmHg. Mild pulmonic regurgitation. Assessment/Plan Assessment/Plan Assessment: 1. Paroxysmal atrial for ablation, in sinus rhythm 2. History of CVA 3. Right femur fracture Plan: * Cardiac risk for surgery is acceptable. The patient is cleared from a cardiac standpoint to proceed with repair of the fracture. * Continue current cardiac medications Consult Acknowledgment - Thank you for your consult request.
--- NOTE | 2018-06-01 14:21 | Discharge Summary ---
Visit Information Visit Dates Admission Date: 05/31/18 Discharge Date: 06/03/2018 Hospital Course Course Attending Physician: Jose De Jesus Trejo MD Primary Care Physician: Cristian TANNER,Everettwilliam [facility] Course: The patient is 88-year-old female with past medical history of CVA (with no residual deficits), hypertension, hyperlipidemia, paroxysmal atrial fibrillation (on amiodarone and not on anticoagulation). Patient presented to [facility] after sustaining a mechanical fall and imaging in the ED revealed oblique fracture of right femur with mild displacement. Of note patient had right hip hemiarthroplasty done last year. Patient was admitted to general medicine floor for treatment and evaluation of right femoral fracture. Her RCRI showed 0.9% (1pt for CVA) risk for major cardiac event. The patient was also evaluated by cardiology and her EKG showed sinus bradycardia without any pauses. Patient was medically and cardiology-marie cleared for surgery considering benefits outweighed the risks. Patient underwent ORIF right periprosthetic femur fracture with orthopedic services on 06/01. The dressing was changed on postop day 2. Since her surgery patient has been evaluated by PT. She is deemed stable to be discharged to short-term rehab with partial weightbearing status. For DVT prophylaxis patient has been started on Lovenox which she will need to continue for 6 weeks. Of note patient had positive UA on presentation and her urine culture grew sensitive E. coli. Patient received 1 dose of ceftriaxone on admission and 2 doses of cefazolin for surgery. Urine culture was repeated which showed cohen- sensitive E. Coli and will be discharged on kelfex to complete a course of total 5 days. Patient had leukocytosis on 06/02 which was most likely secondary to UTI. Her H&H were mildly dropped after surgery however remained stable her discharging H/H was stable. Patient is being discharged to a short-term rehabilitation facility with 6 weeks of anticoagulation plan. She will require follow-up with orthopedics 2 weeks after discharge for removal of maribell. Patient will follow up with PCP after discharge Allergies: Coded Allergies: NO KNOWN ALLERGIES (01/31/14) Significant Procedures: Operative/Inv Procedure Report Surgery Date: 06/01/18 Name of Procedure: ORIF right periprosthetic femur fracture Pre-Operative Diagnosis: Right periprosthetic [place] C femur fracture Post-Operative Diagnosis: Right periprosthetic [place] C femur fracture Estimated Blood Loss: 100mL Surgeon/Phone Operator: Bo TANNER, Opal Potts PA-C Anesthesia: general endotracheal tube IV Fluids: 1600mL Implants: Styker distal lateral femur plate, 14 hole 5.0mm locking screws and three 5.0mm periprosthetic locking screws Urine Output: Per anethesia Drains: None Specimens: None Tourniquet: N/A Complications: None Condition: Stable Operative Indication: Shira Luke is an 88 year old female who sustained a ground level fall at home on 05/31/18. She had a fall approximately one year ago resulting in a right femoral neck fracture; she underwent cemented hemiarthroplasty at that time. She uses a walker at baseline; reports tripping over her walker last night, resulting in her fall and a spiral fracture of the right femur, below the hemiarthroplasty stem ([place] C fracture). She presented to the Emergency Department, where x-rays showed her fracture. She was admitted to the Medical Service and optimized for surgery. She was taken the following day for ORIF of her periprosthetic femur fracture. Operative/Procedure Note Note: Shira Luke was brought to the operating room on 06/01/2018. She was met in the preoperative area, where her operative extremity was marked. She was then brought into the operating room. A timeout procedure was performed, in which the patient, operative extremity, and planned procedure were verified. The patient was then induced under general anesthesia. IV cefazolin was given for antibiotic prophylaxis. The patient was then moved from the hospital bed to the operating room table. She remained in the supine position. A small bump was placed underneath the right hip to internally rotate the lower extremity. Fluoroscopy was used to identify the bony landmarks, including the distal end of the hip prosthesis, the fracture site, and the lateral femoral condyle of the knee. Right lower extremity was prepped and draped in the usual sterile fashion. Following surgical pause, a small incision was made over the fracture site which was taken through the skin skin and subtendinous tissues down to the iliotibial band. This was split in a longitudinal fashion. The vastus lateralis was divided posteriorly and elevated to expose the lateral femur. A large reduction clamp was placed around the femur. With the leg in the fracture was use the fracture was reduced using traction and internal rotation and the clamp applied to reduce the oblique segment of the femur fracture. The reduction was verified using fluoroscopy. Incision was then made over the lateral knee through the skin and subcutaneous tissues down to the iliotibial band. This was split longitudinally to identify the lateral aspect of the lateral femoral condyle. A 14 hole lateral femoral locking plate was selected and sized appropriately. This was carefully passed through the distal incision along the femur up to the reduction clamp. The clamp was then carefully released and the plate slid along the lateral aspect of the femur as the clamp was then reapplied in the appropriate position. A K-wire was placed in the distal aspect of the plate to localize the position on the lateral femoral condyle. This was adjusted accordingly using fluoroscopic guidance. Once positioned, a series of locking screws were placed in the distal cluster of the lateral femoral locking plate. We then sequentially placed multiple locking screws along the shaft of the femur. 2 screws were placed alongside the clamp to provide fixation across the fracture site. Additional screws were then placed proximally, just distal to the stem of the hemiarthroplasty. The screws were placed through the bone cement and were able to gain good fixation. 3 unicortical periprosthetic locking screws were also used for additional stability as the plate overlapped the stem. Once fixation of the femur fracture was obtained, fluoroscopy was used to verify the position of the implant in both the AP and lateral planes. The leg was gently moved and the fracture found to be stable. The wounds were copiously irrigated with normal saline. The iliotibial band incisions were closed using 0 Vicryl. The incisions were then closed in layers using 0 Vicryl, 2-0 Vicryl, and maribell. The wounds were dressed with sterile Xeroform, gauze, and Tegaderm. The leg was then wrapped with an Von bandage from foot to mid thigh, and a knee immobilizer was placed. The patient was then extubated and moved from the operating room table to the hospital bed. She was taken to the recovery unit in stable condition. Disposition Summary Disposition Principal Diagnosis: Oblique fracture of right femur it is post ORIF 06/01 Additional Diagnosis: CVA (with no residual deficits), hypertension, hyperlipidemia, paroxysmal atrial fibrillation (on amiodarone and not on anticoagulation). Discharge Disposition: SNF Discharge Instructions General Discharge Information Code Status: Full Code Patient's Diet: As tolerated Patient's Activity: Partial weightbearing Follow-Up Instructions/Appts: -Continue Lovenox for 6 weeks -Follow-up with orthopedics within 2 weeks of discharge -Follow-up with PCP within 1 week of discharge Medications at Discharge Discharge Medications: Continue taking these medications: Simvastatin (Simvastatin*) 5 MG TABLET 1 Tablet ORAL DAILY Comments: NOT TAKEN: ATORVASTATIN TAKEN 06/02/18 @ 5 PM Amlodipine Besylate (Norvasc) 5 MG TABLET 1 Tablet ORAL DAILY Comments: LAST TAKEN: 06/03/18 @ 9 AM Aspirin (Ecotrin*) 81 MG TABLET.DR 1 Tablet ORAL DAILY Comments: NOT TAKEN IN HOSPITAL Lisinopril (Lisinopril) 20 MG TABLET 1 Tablet ORAL DAILY Comments: Last Taken: 06/03/18 Time: 9 AM Amiodarone (Cordarone) 200 MG TABLET 1 Tablet ORAL DAILY Comments: LAST TAKEN: 06/03/18 @ 9 AM Sennosides/Docusate Sodium (Senna S Tablet) 8.6 MG-50 MG TABLET 2 Tablet ORAL TAKE AT BEDTIME Comments: LAST TAKEN: 06/02/18 @ 10 PM Vit A/Vit C/Vit E/Zinc/Copper (Preservision Areds Tablet) 7,160-113 TABLET 1 Tablet ORAL TWICE DAILY Comments: NOT TAKEN IN HOSPITAL Start taking the following new medications: Enoxaparin Sodium (Lovenox) 40 MG/0.4 ML SYRINGE 40 Milligram SC DAILY Qty = 10 No Refills Instructions: contiune till 07/14 (six wks after the surgey) Comments: LAST TAKEN: 06/03/18 @ 2 PM Acetaminophen (Tylenol) 325 MG TABLET 2 Tablet ORAL EVERY SIX HOURS NEEDED as needed for PAIN Qty = 30 No Refills Cephalexin (Cephalexin) 250 MG CAPSULE 1 Milligram ORAL EVERY SIX HOURS Qty = 11 No Refills Lidocaine (Lidocaine) 5 % ADH..PATCH 1 Patch On the skin DAILY Qty = 30 No Refills Cholecalciferol (Vitamin D3) 1,000 UNIT TABLET 1 Tablet ORAL DAILY Qty = 30 No Refills Calcium Carbonate/Vitamin D3 (Calcium 500 + D Tablet) 500 MG-400 TABLET 1 Tablet ORAL TWICE DAILY Qty = 60 No Refills Copies To: Cristian TANNER,Mounika; Nahomy Soriano MD; Francia TANNER,Linden Attending MD Review Statement Documenting Attending: Jose De Jesus Trejo MD
[2018-06-01] MEDS ORDERED: LIDOCAINE1 EACH TOP (14:41)
[2018-06-01] MEDS ORDERED: TYLENOL325 M1 PO (14:41)
--- NOTE | 2018-06-01 17:18 | Operative Report ---
Operative/Inv Procedure Report Surgery Date: 06/01/18 Name of Procedure: ORIF right periprosthetic femur fracture Pre-Operative Diagnosis: Right periprosthetic [place] C femur fracture Post-Operative Diagnosis: Right periprosthetic [place] C femur fracture Estimated Blood Loss: 100mL Surgeon/Insurance Special Agent: Bo TANNER, Opal Potts PA-C Anesthesia: general endotracheal tube IV Fluids: 1600mL Implants: Styker distal lateral femur plate, 14 hole 5.0mm locking screws and three 5.0mm periprosthetic locking screws Urine Output: Per anethesia Drains: None Specimens: None Tourniquet: N/A Complications: None Condition: Stable Operative Indication: Shira Luke is an 88 year old female who sustained a ground level fall at home on 05/31/18. She had a fall approximately one year ago resulting in a right femoral neck fracture; she underwent cemented hemiarthroplasty at that time. She uses a walker at baseline; reports tripping over her walker last night, resulting in her fall and a spiral fracture of the right femur, below the hemiarthroplasty stem ([place] C fracture). She presented to the Emergency Department, where x-rays showed her fracture. She was admitted to the Medical Service and optimized for surgery. She was taken the following day for ORIF of her periprosthetic femur fracture. Operative/Procedure Note Note: Shira Luke was brought to the operating room on 06/01/2018. She was met in the preoperative area, where her operative extremity was marked. She was then brought into the operating room. A timeout procedure was performed, in which the patient, operative extremity, and planned procedure were verified. The patient was then induced under general anesthesia. IV cefazolin was given for antibiotic prophylaxis. The patient was then moved from the hospital bed to the operating room table. She remained in the supine position. A small bump was placed underneath the right hip to internally rotate the lower extremity. Fluoroscopy was used to identify the bony landmarks, including the distal end of the hip prosthesis, the fracture site, and the lateral femoral condyle of the knee. Right lower extremity was prepped and draped in the usual sterile fashion. Following surgical pause, a small incision was made over the fracture site which was taken through the skin skin and subtendinous tissues down to the iliotibial band. This was split in a longitudinal fashion. The vastus lateralis was divided posteriorly and elevated to expose the lateral femur. A large reduction clamp was placed around the femur. With the leg in the fracture was use the fracture was reduced using traction and internal rotation and the clamp applied to reduce the oblique segment of the femur fracture. The reduction was verified using fluoroscopy. Incision was then made over the lateral knee through the skin and subcutaneous tissues down to the iliotibial band. This was split longitudinally to identify the lateral aspect of the lateral femoral condyle. A 14 hole lateral femoral locking plate was selected and sized appropriately. This was carefully passed through the distal incision along the femur up to the reduction clamp. The clamp was then carefully released and the plate slid along the lateral aspect of the femur as the clamp was then reapplied in the appropriate position. A K-wire was placed in the distal aspect of the plate to localize the position on the lateral femoral condyle. This was adjusted accordingly using fluoroscopic guidance. Once positioned, a series of locking screws were placed in the distal cluster of the lateral femoral locking plate. We then sequentially placed multiple locking screws along the shaft of the femur. 2 screws were placed alongside the clamp to provide fixation across the fracture site. Additional screws were then placed proximally, just distal to the stem of the hemiarthroplasty. The screws were placed through the bone cement and were able to gain good fixation. 3 unicortical periprosthetic locking screws were also used for additional stability as the plate overlapped the stem. Once fixation of the femur fracture was obtained, fluoroscopy was used to verify the position of the implant in both the AP and lateral planes. The leg was gently moved and the fracture found to be stable. The wounds were copiously irrigated with normal saline. The iliotibial band incisions were closed using 0 Vicryl. The incisions were then closed in layers using 0 Vicryl, 2-0 Vicryl, and maribell. The wounds were dressed with sterile Xeroform, gauze, and Tegaderm. The leg was then wrapped with an Von bandage from foot to mid thigh, and a knee immobilizer was placed. The patient was then extubated and moved from the operating room table to the hospital bed. She was taken to the recovery unit in stable condition.
--- NOTE | 2018-06-01 17:55 | PN- Student ---
Sue Morrison 06/01/18 1750: Subjective Subjective: Pt denies pain, main complaint is difficulty speaking without dentures. Denies headache, chest pain, SOB, dyspnea, fever/chills, bleeding. All other ROS negative. Objective Objective: Vitals: BP 135/55, HR 54 Exam: Gen: groggy in bed in NAD Cardiac: S1S2 no M,R,G Lungs: rhonchi on end-expiration throughout, vesicular breath sounds BL Extremity: hip wrapped in pipo bandage and brace, no bleeding evident through dressings Results Results: Laboratory Tests 06/01/18 0702: Anion Gap 7, Estimated GFR 53 L, BUN/Creatinine Ratio 26.0 H, CBC w Diff NO MAN DIFF REQ, RBC 3.24 L, MCV 92.6, MCH 31.5 H, MCHC 34.0, RDW 15.0 H, MPV 8.9, Gran % 79.6 H, Lymphocytes % 13.0 L, Monocytes % 7.3, Eosinophils % 0, Basophils % 0.1, Absolute Granulocytes 8.3 H, Absolute Lymphocytes 1.3, Absolute Monocytes 0.8 H, Absolute Eosinophils 0, Absolute Basophils 0 05/31/182037: Urine Color YEL, Urine Clarity HAZY H, Urine pH 7.0, Ur Specific [place] 1.020, Urine Protein TRACE H, Urine Ketones NEG, Urine Nitrite POS H, Urine Bilirubin NEG, Urine Urobilinogen 0.2, Ur Leukocyte Esterase MOD H, Ur Microscopic SEDIMENT EXAMINED, Urine RBC RARE, Urine WBC 15-25 H, Ur Epithelial Cells RARE, Urine Bacteria MANY H, Urine Hemoglobin TRACE-INTACT, Urine Glucose NEG 05/31/182014: Anion Gap 7, Estimated GFR 39 L, BUN/Creatinine Ratio 20.8, Glucose 125 H, Calcium 8.7, Total Bilirubin 0.3, Direct Bilirubin 0.2, AST 23, ALT 24, Alkaline Phosphatase 74, Troponin I < 0.01, Total Protein 6.7, Albumin 4.0, Amylase 50, Lipase 103, PT 11.9, INR 1.09, APTT 28, CBC w Diff NO MAN DIFF REQ, RBC 4.05 L, MCV 92.8, MCH 30.7, MCHC 33.1, RDW 15.3 H, MPV 8.6, Gran % 73.2, Lymphocytes % 19.5 L, Monocytes % 5.8, Eosinophils % 1.3, Basophils % 0.2, Absolute Granulocytes 7.2 H, Absolute Lymphocytes 1.9, Absolute Monocytes 0.6, Absolute Eosinophils 0.1, Absolute Basophils 0 Microbiology 06/01 906 URINE ROUT: Urine Culture - ORD 05/31 2038 URINE ROUT: Urine Culture - RES GRAM NEGATIVE RODS Assessment/Plan Assessment: Pt is an 88 y/o F w/ right [place] C periprosthetic femur fracture, spiral fracture below cemented hemiarthroplasty currently POD#0 s/p ORIF R femur. Pt is stable and no acute complications noted. Plan: Neuro: percocet 1 tab and morphine 2mg Q4 PRN Cardiac: continue home meds Lungs: incentive spirometry Fluids: IVF D5W 1/2 NS at 75 mL/hr Heme: lovenox and alps for DVT prophylaxis GI: diet regular, docusate/senna for constipation, zofran PRN for nausea : currently has lee PT: PT eval post-op i&o's routine post-op care Zaria Craven 06/01/18 2302: Assessment/Plan Plan: Agree. Pt resting comfortably, did not wake. no issues per rn. Needs PT, partial weight bearing, lovenox 40sq daily. dsg change pod2. prn pain meds
[2018-06-01 18:15] VITALS: BP 138/70
--- NOTE | 2018-06-01 22:12 | RADIOLOGY REPORT ---
Examination: XRY-ORTHOPEDIC EXTREMITY OR Indication: ORIF RT. FEMUR IN OR Comparison: Preoperative images from 06/01/2018 Technique: Intraoperative fluoroscopy was utilized by Dr. Vu for open reduction internal fixation of the right femur. 65 screen capture images were obtained. 3 minutes 34 seconds fluoroscopy time utilized Findings: Images demonstrate progressive bony manipulation with malleable plate and screw fixation placed along the lateral aspect of the mid to distal femur. Final images demonstrate bones to be in essentially anatomic alignment. The previously noted periprosthetic fracture line is in significantly improved anatomic alignment compared to the preoperative images. Impression: Improved anatomic alignment status post open reduction internal fixation of the right femoral periprosthetic fracture.
[2018-06-01 22:42] VITALS: BP 142/60
[2018-06-02 06:46] VITALS: BP 130/60
--- NOTE | 2018-06-02 07:02 | PN- Student ---
Janna Pichardo 06/02/18 0650: Subjective Subjective: Pt reports being in mild pain this morning. She has not ambulated post- operatively. She has not eaten post-operatively. Lee is in place. Denies any nausea or vomiting post-operatively. She denies any CP, SOB, difficulty breathing, fever, numbness, tingling, headache or dizziness Objective Objective: Vitals: see emr General: Elderly female, lying in bed, appears, comfortable, NAD, A&Ox3 but confused about where she lives. Cardio: Regular rate and rhythm. S1 and S2. No murmurs, rubs or gallops. Pulm: Clear breath sounds with no wheezes, rhonchi or rales. Abdomen: Normoactive bowel sounds. Soft, non-tender, non-distended. Extremities: Dressing intact over right leg with ice pack in place. ALPS in place over left calf. Gross motor and sensation intact and equal bilaterally. 4/ 5 plantar flexion on the right and 5/5 on the left. 5/5 dorsiflexion bilaterally. Calves are soft and non-tender bilaterally. Results Results: Laboratory Tests 06/01/18 0702: Anion Gap 7, Estimated GFR 53 L, BUN/Creatinine Ratio 26.0 H, CBC w Diff NO MAN DIFF REQ, RBC 3.24 L, MCV 92.6, MCH 31.5 H, MCHC 34.0, RDW 15.0 H, MPV 8.9, Gran % 79.6 H, Lymphocytes % 13.0 L, Monocytes % 7.3, Eosinophils % 0, Basophils % 0.1, Absolute Granulocytes 8.3 H, Absolute Lymphocytes 1.3, Absolute Monocytes 0.8 H, Absolute Eosinophils 0, Absolute Basophils 0 05/31/182037: Urine Color YEL, Urine Clarity HAZY H, Urine pH 7.0, Ur Specific [place] 1.020, Urine Protein TRACE H, Urine Ketones NEG, Urine Nitrite POS H, Urine Bilirubin NEG, Urine Urobilinogen 0.2, Ur Leukocyte Esterase MOD H, Ur Microscopic SEDIMENT EXAMINED, Urine RBC RARE, Urine WBC 15-25 H, Ur Epithelial Cells RARE, Urine Bacteria MANY H, Urine Hemoglobin TRACE-INTACT, Urine Glucose NEG 05/31/182014: Anion Gap 7, Estimated GFR 39 L, BUN/Creatinine Ratio 20.8, Glucose 125 H, Calcium 8.7, Total Bilirubin 0.3, Direct Bilirubin 0.2, AST 23, ALT 24, Alkaline Phosphatase 74, Troponin I < 0.01, Total Protein 6.7, Albumin 4.0, Amylase 50, Lipase 103, PT 11.9, INR 1.09, APTT 28, CBC w Diff NO MAN DIFF REQ, RBC 4.05 L, MCV 92.8, MCH 30.7, MCHC 33.1, RDW 15.3 H, MPV 8.6, Gran % 73.2, Lymphocytes % 19.5 L, Monocytes % 5.8, Eosinophils % 1.3, Basophils % 0.2, Absolute Granulocytes 7.2 H, Absolute Lymphocytes 1.9, Absolute Monocytes 0.6, Absolute Eosinophils 0.1, Absolute Basophils 0 Microbiology 06/01 906 URINE ROUT: Urine Culture - COLB 05/31 2038 URINE ROUT: Urine Culture - RES GRAM NEGATIVE RODS Assessment/Plan Assessment: 88 year old F POD#1 s/p r periprosthetic hip fracture with ORIF. Pt's post- operative pain is well controlled and vital signs are stable. Pt is still due to ambulate with physical therapy andue to void after lee removal. Plan: Continue with pain control as needed. Lovenox 40 mg daily for DVT ppx. 1 dose of cefazolin is remaining. IVF running at 75 ml/hr. Partial weight bearing. Physical therapy to see the patient. Dressing change tomorrow. Lee in place. ALPs in place. Encourage incentive spirometry use. Regular diet as tolerated. Continue home medicatons. Follow up w am labs. Lilo Strauss 06/02/18 0814: Addendum Note Addendum Agree with FABIAN-S note above. Pt resting comfortably in bed in NAD. Worked with PT yesterday but has not ambulated. Has not tried a diet secondary to decreased appetite but states she feels like eating this am. No issues per rn. Continue PT, partial weight bearing. DVT ppx with Lovenox 40sq daily. Dressing change pod # 2. Pain meds prn. Follow up repeat urine culture - currently pending.
[2018-06-02 08:19] LABS: ABSOLUTE BASOPHIL COUNT 0 /CUMM (0.0-0.2); ABSOLUTE EOSINOPHIL COUNT 0 /CUMM (0.0-0.7); ABSOLUTE GRANULOCYTE CT 9.4 /CUMM (1.4-6.5); ABSOLUTE LYMPH COUNT 1.1 /CUMM (1.2-3.4); BASOPHIL % 0.1 % (0.0-2.0); EOSINOPHIL % 0 % (0-5); HEMATOCRIT 29.5 % (37-47); MEAN CORPUSCULAR HGB 31.1 PG (27.0-31.0); MEAN CORPUSCULAR HGB CONC 33.6 G/DL (33.0-37.0); MEAN CORPUSCULAR VOLUME 92.8 FL (81.0-99.0); MEAN PLATELET VOLUME 9.1 FL (7.4-10.4); PLATELET COUNT 234 /CUMM (130-400); RBC DISTRIBUTION WIDTH 15.3 % (11.5-14.5); RED BLOOD CELL CT 3.18 /CUMM (4.20-5.40); WHITE BLOOD CELL COUNT 11.4 /CUMM (4.8-10.8)
--- NOTE | 2018-06-02 09:17 | PN- Housestaff ---
Nahco Martínez 06/02/18 0916: Subjective Follow-up For: Right hip femoral fracture Subjective: Patient seen and examined at bedside. POD 1 s/p ORIF of right periprosthetic femur fracture. She denies any fevers, headache, chest pain, palpitations, shortness of breath, or calf tenderness. Only some LRE soreness expected after surgery. Her dressing is C/D/I. She still denies urinary symptoms although UA is positive. Review of Systems Constitutional: Denies: see HPI. Objective Last 24 Hrs of Vital Signs/I&O Vital Signs Date Time Temp Pulse Resp B/P B/P Pulse O2 O2 Flow FiO2 Mean Ox Delivery Rate 06/02 2303 99.0 62 18 110/60 95 Room Air 06/02 1600 96 Room Air 06/02 1442 98.7 67 16 128/66 97 Room Air 06/02 1242 Nasal 3.0L Cannula 06/02 0819 68 130/70 06/02 0818 68 130/70 06/02 0818 68 130/70 06/02 0803 Nasal 3.0L Cannula 06/02 0646 98.6 65 20 130/60 97 Nasal 3.0L Cannula Intake & Output 06/03 0800 06/03 0000 06/02 1600 Intake Total 0 600 Output Total 850 Balance 0 -250 Intake, IV 300 Intake, Oral 0 300 Number 0 Bowel Movements Output, Urine 850 Physical Exam General Appearance: Alert, Oriented X3, Cooperative Skin: No Rashes Skin Temp/Moisture Exam: Warm/Dry HEENT: Atraumatic, EOMI, Mucous Membr. moist/pink Neck: Supple Cardiovascular: Normal S1, Normal S2 Lungs: Clear to Auscultation, Normal Air Movement Abdomen: Normal Bowel Sounds, Soft, No Tenderness Neurological: Sensation Intact, Motor 3/5 at right hip. Plantar flexion 4/5 on right. Extremities: No Cyanosis, No Tenderness/Swelling Vascular: Normal Pulses Assessment/Plan Assessment: 88 yo F with PMH of CVA (with no residual deficits), hypertension, hyperlipidemia, paroxysmal atrial fibrillation (on amiodarone and not on anticoagulation) was brought to the ED after sustaining a mechanical fall. She is now POD 1 s/p ORIF of right periprosthetic femur fracture. Patient is on room air. Today she is tolerating regular diet. She continues to work with PT, but has not started ambulating yet. C-Arm Fluoroscopy: Impression: Improved anatomic alignment status post open reduction internal fixation of the right femoral periprosthetic fracture. Problem list: # Right periprosthetic femur fracture s/p ORIF # Hx of HTN # Hx of HLD # Hx of paroxysmal Afib (amiodarone not on A/C) Plan: - DC Lee - DC Fluids - Hold Aspirin for now - CBC AM - Change dressings tmrw - PT evaluation for STR - Continue pain management - Continue home medications DVT ppx: Lovenox 40 sq Full Code Problem List: 1. Right femoral fracture Pain Ratin Pain Location: n/a Pain Goal: Remain pain free Pain Plan: per pathway Tomorrow's Labs & Rationales: CBC Urine Cx Jose De Jesus Trejo MD 06/02/181: Attending MD Review Statement Attending Statement Attending MD Statement: examined this patient, discuss w/resident/PA/EXTRUSION MACHINE OPERATOR, agreed w/resident/PA/EXTRUSION MACHINE OPERATOR, reviewed EMR data (avail), discussed with nursing, discussed with case mgmt, amended to note Attending Assessment/Plan: The patient was seen and discussed with house staff. Doing well post operatively. Will d/c lee and stop IV fluids (po intake good as per nursing). Pain improved post surgery. Will need PT evaluation and STR. Case management aware.
[2018-06-02] MEDS ORDERED: LOVENOX40 MG/0.1 SC ×2 (09:49→16:17)
--- NOTE | 2018-06-02 11:31 | PN- Cardiology ---
Subjective Subjective: Doing well status post surgery. No chest pain. No palpitations. No shortness of breath. No diaphoresis. Objective Vital Signs and I&Os Vital Signs Date Time Temp Pulse Resp B/P B/P Pulse O2 O2 Flow FiO2 Mean Ox Delivery Rate 06/02 0819 68 130/70 06/02 0818 68 130/70 06/02 0818 68 130/70 06/02 0803 Nasal 3.0L Cannula 06/02 0646 98.6 65 20 130/60 97 Nasal 3.0L Cannula 06/02 0000 99 Nasal 2.0L Cannula 06/01 2242 97.4 56 18 142/60 99 Nasal 3.0L Cannula 06/01 1815 99 Nasal 3.0L Cannula 06/01 181 97.6 62 18 138/70 99 Nasal 2.0L Cannula Intake & Output 06/02 1600 06/02 0800 06/02 0000 06/01 1600 06/01 0800 06/01 0000 Intake Total 600 540 525 375 Output Total 500 1600 200 425 200 Balance -500 -1000 340 525 -50 -200 Intake, IV 600 300 525 375 Intake, Oral 0 240 0 Number 0 0 Bowel Movements Output, Urine 500 1600 200 425 200 Patient 134 lb 120 lb Weight Weight Bed scale Measurement Method Physical Exam: Gen: NAD HEENT: normal Lungs: clear to auscultation, normal resp. effort Heart: RRR, S1, S2, 1/6 systolic murmur Abdomen: Soft, nontender, no masses Extremities: No clubbing, cyanosis, or edema. Neuro: Alert and oriented x 3, cranial nerves intact Current Medications: Current Medications Sig/Tiffanie Start time Last Medication Dose Route Stop Time Status Admin Acetaminophen 0 .STK-MED ONE 06/01 1236 DC IV Acetaminophen 650 MG Q6P PRN 06/01 0030 AC 06/01 PO 0157 Amiodarone HCl 200 MG DAILY 06/01 09 AC 06/02 PO 0819 Amlodipine Besylate 5 MG DAILY 06/01 09 AC 06/02 PO 0818 Atorvastatin Calcium 5 MG 1700 06/01 1700 AC PO Bisacodyl 5 MG DAILY 06/01 1437 AC 06/02 PO 0819 Cefazolin Sodium 1,000 MG IQ8 06/02 0000 DC 06/02 IV 06/02 0801 0819 Dextrose/Sodium 1,000 ML Q13H 06/01 0030 DC 06/02 Chloride IV 0630 Enoxaparin Sodium 40 MG DAILY 06/02 1500 DC SC Enoxaparin Sodium 40 MG 1500 06/02 1500 AC SC Fentanyl Citrate 0 .STK-MED ONE 06/01 123 DC .ROUTE Hydromorphone HCl 0 .STK-MED ONE 06/01 1237 DC .ROUTE Lisinopril 20 MG DAILY 06/01 0900 AC 06/02 PO 0818 Midazolam HCl 0 .STK-MED ONE 06/01 1236 DC .ROUTE Morphine Sulfate 2 MG Q4P PRN 06/01 0030 AC 06/01 IV 0536 Ondansetron HCl 4 MG ONCE ONE 06/01 1900 DC 06/01 IV 06/01 190 191 Ondansetron HCl 0 .STK-MED ONE 06/01 123 DC .ROUTE Oxycodone/ 1 TAB Q4P PRN 06/01 0030 AC 06/01 Acetaminophen PO 0959 Polyethylene Glycol 17 GM DAILY 06/01 1437 AC 06/02 PO 0819 Senna/Docusate Sodium 2 TAB QPM 06/01 2100 AC PO Results Last 48 Hrs of Labs/Mics: Laboratory Tests 06/02/18 0645: Anion Gap 8, Estimated GFR 59 L, BUN/Creatinine Ratio 17.8, CBC w Diff NO MAN DIFF REQ, RBC 3.18 L, MCV 92.8, MCH 31.1 H, MCHC 33.6, RDW 15.3 H, MPV 9.1, Gran % 82.0 H, Lymphocytes % 9.3 L, Monocytes % 8.6, Eosinophils % 0, Basophils % 0.1, Absolute Granulocytes 9.4 H, Absolute Lymphocytes 1.1 L, Absolute Monocytes 1.0 H, Absolute Eosinophils 0, Absolute Basophils 0 06/01/18 0702: Anion Gap 7, Estimated GFR 53 L, BUN/Creatinine Ratio 26.0 H, CBC w Diff NO MAN DIFF REQ, RBC 3.24 L, MCV 92.6, MCH 31.5 H, MCHC 34.0, RDW 15.0 H, MPV 8.9, Gran % 79.6 H, Lymphocytes % 13.0 L, Monocytes % 7.3, Eosinophils % 0, Basophils % 0.1, Absolute Granulocytes 8.3 H, Absolute Lymphocytes 1.3, Absolute Monocytes 0.8 H, Absolute Eosinophils 0, Absolute Basophils 0 05/31/182037: Urine Color YEL, Urine Clarity HAZY H, Urine pH 7.0, Ur Specific [place] 1.020, Urine Protein TRACE H, Urine Ketones NEG, Urine Nitrite POS H, Urine Bilirubin NEG, Urine Urobilinogen 0.2, Ur Leukocyte Esterase MOD H, Ur Microscopic SEDIMENT EXAMINED, Urine RBC RARE, Urine WBC 15-25 H, Ur Epithelial Cells RARE, Urine Bacteria MANY H, Urine Hemoglobin TRACE-INTACT, Urine Glucose NEG 05/31/182014: Anion Gap 7, Estimated GFR 39 L, BUN/Creatinine Ratio 20.8, Glucose 125 H, Calcium 8.7, Total Bilirubin 0.3, Direct Bilirubin 0.2, AST 23, ALT 24, Alkaline Phosphatase 74, Troponin I < 0.01, Total Protein 6.7, Albumin 4.0, Amylase 50, Lipase 103, PT 11.9, INR 1.09, APTT 28, CBC w Diff NO MAN DIFF REQ, RBC 4.05 L, MCV 92.8, MCH 30.7, MCHC 33.1, RDW 15.3 H, MPV 8.6, Gran % 73.2, Lymphocytes % 19.5 L, Monocytes % 5.8, Eosinophils % 1.3, Basophils % 0.2, Absolute Granulocytes 7.2 H, Absolute Lymphocytes 1.9, Absolute Monocytes 0.6, Absolute Eosinophils 0.1, Absolute Basophils 0 Assessment/Plan Assessment/Plan Assessment: 1. Paroxysmal atrial fibrillation, in sinus rhythm 2. History of CVA 3. Right femur fracture, status post Plan: * Doing well status post repair of right femur fracture * Continue cardiac medications Continue telemetry? Not applicable
[2018-06-02 14:42] VITALS: BP 128/66
--- NOTE | 2018-06-02 16:37 | PN- Orthopedic ---
Surgical Brief Attending Note Brief Attending Note: Patient seen and examined. Resting comfortably in bed, knee immobilizer in place. Says she was out of bed to chair earlier today; soreness in right leg. Denies chest pain or shortness of breath; no nausea. Exam: RLE Dressing clean, dry, intact Tender to palpation over right lateral thigh No calf tenderness Intact ankle DF/PF and EHL/FHL SILT over right foot Foot warm and well-perfused Vital signs stable H/H: 9.9/29.5 A/P: 88yo F POD#1 ORIF right periprosthetic femur fracture. Doing well with expected post-op soreness. 1. TTWB RLE; knee immobilizer and walker at all times 2. Pain control; icing, IV tylenol, avoid narcotics 3. Lovenox 40mg qd x6wks for DVT prophylaxis 4. Out of bed with PT 5. Monitor vitals and H/H 6. Dressing change POD#2 or 3; recommend continued CONSUELO compression over right thigh. Plan for follow up in the clinic in 2wks for reevaluation.
[2018-06-02 23:03] VITALS: BP 110/60
[2018-06-03 07:04] VITALS: BP 142/58
--- NOTE | 2018-06-03 07:16 | PN- Housestaff ---
Subjective Follow-up For: Right hip femoral fracture Subjective: Patient seen and examined at bedside. POD 2 s/p ORIF of right periprosthetic femur fracture. She denies any fevers, headache, chest pain, palpitations, shortness of breath, or calf tenderness. Her dressing is C/D/I. She is ready to go home. Review of Systems Constitutional: Denies: see HPI. Objective Last 24 Hrs of Vital Signs/I&O Vital Signs Date Time Temp Pulse Resp B/P B/P Pulse O2 O2 Flow FiO2 Mean Ox Delivery Rate 06/03 1558 99.0 62 20 102/64 06/03 0831 62 102/64 06/03 0831 62 102/64 06/03 0830 62 102/64 06/03 0800 95 Room Air 06/03 0704 99.0 63 20 142/58 94 Intake & Output 06/04 0800 06/04 0000 06/03 1600 Intake Total 360 Output Total Balance 360 Intake, Oral 360 Physical Exam General Appearance: Alert, Oriented X3, Cooperative, No Acute Distress Skin: Dressing C/D/I on right hip Skin Temp/Moisture Exam: Warm/Dry HEENT: Atraumatic, Mucous Membr. moist/pink Neck: Supple Cardiovascular: Normal S1, Normal S2 Lungs: Clear to Auscultation, Normal Air Movement Abdomen: Normal Bowel Sounds, Soft, No Tenderness Neurological: Sensation Intact Extremities: No Cyanosis, No Tenderness/Swelling Vascular: Normal Pulses Assessment/Plan Assessment: 88 yo F with PMH of CVA (with no residual deficits), hypertension, hyperlipidemia, paroxysmal atrial fibrillation (on amiodarone and not on anticoagulation) was brought to the ED after sustaining a mechanical fall. She is now POD 2 s/p ORIF of right periprosthetic femur fracture. Patient is on room air. Still tolerating regular diet. She continues to work with PT, and has started ambulating. C-Arm Fluoroscopy: Impression: Improved anatomic alignment status post open reduction internal fixation of the right femoral periprosthetic fracture. Problem list: # Right periprosthetic femur fracture s/p ORIF # Hx of HTN # Hx of HLD # Hx of paroxysmal Afib (amiodarone not on A/C) Plan: - Hold Aspirin for now - Change dressings daily - Continue pain management - Continue home medications - Partial weight bearing - H/H stable, WBC wnl, Afebrile - She had a bowel movement - Placement for STR ready DVT ppx: Lovenox 40 sq Full Code Problem List: 1. Right femoral fracture Pain Ratin Pain Location: n/a Pain Goal: Remain pain free Pain Plan: Pathway Tomorrow's Labs & Rationales: None
[2018-06-03 08:09] LABS: ABSOLUTE BASOPHIL COUNT 0 /CUMM (0.0-0.2); ABSOLUTE EOSINOPHIL COUNT 0 /CUMM (0.0-0.7); ABSOLUTE GRANULOCYTE CT 6.8 /CUMM (1.4-6.5); ABSOLUTE LYMPH COUNT 2.3 /CUMM (1.2-3.4); ABSOLUTE MONOCYTE COUNT 1.3 /CUMM (0.10-0.60); BASOPHIL % 0.1 % (0.0-2.0); EOSINOPHIL % 0.5 % (0-5); GRANULOCYTE % 64.8 % (42.2-75.2); HEMATOCRIT 25.9 % (37-47); MEAN CORPUSCULAR HGB 30.6 PG (27.0-31.0); MEAN CORPUSCULAR HGB CONC 32.6 G/DL (33.0-37.0); MEAN CORPUSCULAR VOLUME 93.8 FL (81.0-99.0); MEAN PLATELET VOLUME 9.3 FL (7.4-10.4); PLATELET COUNT 203 /CUMM (130-400); RBC DISTRIBUTION WIDTH 15.5 % (11.5-14.5); RED BLOOD CELL CT 2.76 /CUMM (4.20-5.40); WHITE BLOOD CELL COUNT 10.5 /CUMM (4.8-10.8)
--- NOTE | 2018-06-03 09:54 | PN- Student ---
Janna Pichardo 06/03/18 0950: Subjective Subjective: Pt feeling better today. Lilly is out and patient is urinating without difficulty. She continues to have pain in right leg but it is relievbed with pain medication. Tolerating a regular diet with no nausea or vomiting. Ambulated to the chair without difficulty, just some pain in her leg. Denies any CP, SOB, difficulty breathing, numbness or tingling. Objective Objective: Vitals: see emr General: Elderly female, lying in bed, appears comfortable, NAD. Cardio: Regular rate and rhythm. S1 and S2. No murmurs, rubs or gallops. Pulm: Clear breath sounds with no wheezes, rhonchi or rales. Abdomen: Normoactive bowel sounds. Soft, non-tender, non-distended. Extremities: Dressing intact over right leg with ice pack in place. Knee immobilizer in place.ALPS in place over left calf. Gross motor and sensation intact and equal bilaterally. 4/5 plantar flexion on the right and 5/5 on the left. 5/5 dorsiflexion bilaterally. Calves are soft and non-tender bilaterally. Results Results: Laboratory Tests 06/03/18 0620: CBC w Diff NO MAN DIFF REQ, RBC 2.76 L, MCV 93.8, MCH 30.6, MCHC 32.6 L, RDW 15.5 H, MPV 9.3, Gran % 64.8, Lymphocytes % 22.1, Monocytes % 12.5 H, Eosinophils % 0.5, Basophils % 0.1, Absolute Granulocytes 6.8 H, Absolute Lymphocytes 2.3, Absolute Monocytes 1.3 H, Absolute Eosinophils 0, Absolute Basophils 0 06/02/18 0645: Anion Gap 8, Estimated GFR 59 L, BUN/Creatinine Ratio 17.8, CBC w Diff NO MAN DIFF REQ, RBC 3.18 L, MCV 92.8, MCH 31.1 H, MCHC 33.6, RDW 15.3 H, MPV 9.1, Gran % 82.0 H, Lymphocytes % 9.3 L, Monocytes % 8.6, Eosinophils % 0, Basophils % 0.1, Absolute Granulocytes 9.4 H, Absolute Lymphocytes 1.1 L, Absolute Monocytes 1.0 H, Absolute Eosinophils 0, Absolute Basophils 0 06/01/18 0702: Anion Gap 7, Estimated GFR 53 L, BUN/Creatinine Ratio 26.0 H, CBC w Diff NO MAN DIFF REQ, RBC 3.24 L, MCV 92.6, MCH 31.5 H, MCHC 34.0, RDW 15.0 H, MPV 8.9, Gran % 79.6 H, Lymphocytes % 13.0 L, Monocytes % 7.3, Eosinophils % 0, Basophils % 0.1, Absolute Granulocytes 8.3 H, Absolute Lymphocytes 1.3, Absolute Monocytes 0.8 H, Absolute Eosinophils 0, Absolute Basophils 0 05/31/182037: Urine Color YEL, Urine Clarity HAZY H, Urine pH 7.0, Ur Specific [place] 1.020, Urine Protein TRACE H, Urine Ketones NEG, Urine Nitrite POS H, Urine Bilirubin NEG, Urine Urobilinogen 0.2, Ur Leukocyte Esterase MOD H, Ur Microscopic SEDIMENT EXAMINED, Urine RBC RARE, Urine WBC 15-25 H, Ur Epithelial Cells RARE, Urine Bacteria MANY H, Urine Hemoglobin TRACE-INTACT, Urine Glucose NEG 05/31/182014: Anion Gap 7, Estimated GFR 39 L, BUN/Creatinine Ratio 20.8, Glucose 125 H, Calcium 8.7, Total Bilirubin 0.3, Direct Bilirubin 0.2, AST 23, ALT 24, Alkaline Phosphatase 74, Troponin I < 0.01, Total Protein 6.7, Albumin 4.0, Amylase 50, Lipase 103, PT 11.9, INR 1.09, APTT 28, CBC w Diff NO MAN DIFF REQ, RBC 4.05 L, MCV 92.8, MCH 30.7, MCHC 33.1, RDW 15.3 H, MPV 8.6, Gran % 73.2, Lymphocytes % 19.5 L, Monocytes % 5.8, Eosinophils % 1.3, Basophils % 0.2, Absolute Granulocytes 7.2 H, Absolute Lymphocytes 1.9, Absolute Monocytes 0.6, Absolute Eosinophils 0.1, Absolute Basophils 0 Microbiology 06/02 161 URINE ROUT: Urine Culture - COLB 06/01 906 URINE ROUT: Urine Culture - CAN Cancelled: DUPLICATE 05/31 2038 URINE ROUT: Urine Culture - COMP ESCHERICHIA COLI Assessment/Plan Assessment: 88 year old F POD#2 s/p r periprosthetic hip fracture with ORIF. Pt's post- operative pain is well controlled and vital signs are stable. Pt is stable from surgical standpoint. Plan: Continue with pain control as needed. Lovenox 40 mg daily for DVT ppx. Partial weight bearing. Physical therapy to see the patient. Dressing changed, conitnue with daily dry dressing changes. ALPs in place. Encourage incentive spirometry use. Regular diet as tolerated. Fior Chew 06/03/18 1109: Assessment/Plan Plan: AGREE WITH ABOVE PAIN CONTROLLED WITH MEDS DC PLANNING- OK FOR REHAB TODAY PARTIAL WEIGHT BEARING FU WITH DR KHAN IN 2 WEEKS
--- NOTE | 2018-06-03 11:42 | Patient Discharge Instructions ---
Discharge Instructions General Discharge Information You were seen/treated for: Open reduction internal fixation of right periprosthetic femur fracture Special Instructions: Please follow up with your PCP within one week of discharge. please have further evaluation for your osteoporosis with your PCP. please follow up with your orthopedic doctor within one week of discharge. you are on blood thinner for a total of 6 weeks, please continue to take it as prescribed. Acute Coronary Syndrome Inclusion Criteria At DC or during hospital stay patient has or had the following: ACS DIAGNOSIS No Discharge Core Measures Meds if any: Prescribed or Continued at Discharge Meds if any: NOT Prescribed or Continued at Discharge Congestive Heart Failure Inclusion Criteria At DC or during hospital stay patient has or had the following: CHF DIAGNOSIS No Discharge Core Measures Meds if any: Prescribed or Continued at Discharge Meds if any: NOT Prescribed or Continued at Discharge Cerebrovascular accident Inclusion Criteria At DC or during hospital stay patient has or had the following: CVA/TIA Diagnosis No Discharge Core Measures Meds if any: Prescribed or Continued at Discharge Meds if any: NOT Prescribed or Continued at Discharge Venous thromboembolism Inclusion Criteria VTE Diagnosis No VTE Type NONE VTE Confirmed by (Test) NONE Discharge Core Measures - Per Current guidelines, there needs to be overlap - treatment for the first 5 days of Warfarin therapy. - If discharged on Warfarin prior to 5 days of - overlap therapy, the patient will need to be - assessed for post discharge needs including - *Post discharge parental anticoagulation - *Warfarin and/or parental anticoagulation education - *Follow up date to check INR post discharge At least 5 days overlap therapy as Inpatient No Meds if any: Prescribed or Continued at Discharge Note: Overlap Therapy is Warfarin and Anticoagulant Meds if any: NOT Prescribed or Continued at Discharge
[2018-06-03] MEDS ORDERED: CEPHALEXIN250 M2 PO (11:49)
[2018-06-03] MEDS ORDERED: CALCIUM 500 +1 EAC5 PO (11:53)
[2018-06-03] MEDS ORDERED: VITAMIN D31000 UNI2 PO (11:53)
[2018-06-03 15:58] VITALS: BP 102/64
== END 2018-06-03 16:10 | DRG 482 ==
LOC: ERH 19:50 → 2NA 23:22 → ERHI 23:22 → ENRESERV 06-01 00:16 → 2NA 06-01 01:14 → ENTRNSPT 06-01 17:53 → EDTRNSPT 06-01 17:57 → EDTRNSPTSTS 06-01 17:57 → CMPTRNSPT 06-01 18:12 → ENPENDDIS 06-03 14:42 → 2NA 06-03 16:10
PROVIDERS: Internal Medicine; Pediatrics; Physical Medicine & Rehabilitation Pain Medicine; Student in an Organized Health Care Education/Training Program
PROC: 0QS804Z Reposition Right Femoral Shaft with Internal Fixation Device, Open Approach (ICD-10-PCS; principal; 2018-06-01)
DX: M97.01XA Periprosthetic fracture around internal prosthetic right hip joint, initial encounter (principal); I10 Essential (primary) hypertension; I48.0 Paroxysmal atrial fibrillation; E78.5 Hyperlipidemia, unspecified; W18.30XA Fall on same level, unspecified, initial encounter; Y92.000 Kitchen of unspecified non-institutional (private) residence as the place of occurrence of the external cause; Z79.01 Long term (current) use of anticoagulants; Z86.73 Personal history of transient ischemic attack (TIA), and cerebral infarction without residual deficits
CPT/HCPCS: 2NAP; ERO; 36592; 71045; 72170; 73502-RT; 73552; 76000; 81001; 82436; 86920; 87086; 93005; 93010; 97110-GO; 97161-GP; 97530-GO; C1713; J0131; J0690; J0696; J1644; J1650; J2405; J3490; J7042; Q2036